=== PATIENT | female | born 1930 | race Caucasian/White ===

== ENCOUNTER 2018-12-31 11:55 | Observation (INO) ==
[2018-12-31 13:58] LABS: Hematocrit 27.7 % (35.3-44.9); Hemoglobin 8.9 g/dL (11.5-15.4); Mean Corpuscular HGB Conc 32.1 g/dL (31.6-35.5); Mean Corpuscular Hemoglobin 32.4 pg (28.0-33.3); Mean Corpuscular Volume 100.7 fL (83.0-100.0); Platelet Count 209 K/mcL (140-400); Red Blood Count 2.75 M/mcL (3.82-4.97); Red Cell Distribution Width 14.5 % (11.5-14.5)
[2018-12-31] MEDS ORDERED: Naloxone 0.4 MG/ML INJ IVP PRN (16:49)
[2018-12-31] MEDS ORDERED: Acetaminophen 325 MG TABLET PO PRN (16:49)
[2018-12-31] MEDS ORDERED: Spironolactone 25 MG TABLET PO SCH (17:00)
[2018-12-31 17:08] LABS: Basophils % 0.4 %; Eosinophils # 0.1 K/mcL (0.0-0.6); Hematocrit 28.3 % (35.3-44.9); Immature Granulocytes % 0.1 % (0-4); Lymphocytes # 2.1 K/mcL (0.6-4.6); Lymphocytes % 29.3 %; Mean Corpuscular HGB Conc 31.8 g/dL (31.6-35.5); Mean Corpuscular Hemoglobin 32.1 pg (28.0-33.3); Mean Corpuscular Volume 101.1 fL (83.0-100.0); Mean Platelet Volume 9.8 fL (9.4-12.4); Monocytes # 0.6 K/mcL (0.0-1.3); Neutrophils # 4.2 K/mcL (1.6-8.9); Platelet Count 197 K/mcL (140-400); Red Cell Distribution Width 14.4 % (11.5-14.5); Segmented Neutrophils % 60.2 %
[2018-12-31 17:15] LABS: Prothrombin Time 11.6 Seconds (9.4-12.1)
[2018-12-31 17:27] LABS: BUN/Creatinine Ratio 27 (6-26); Blood Urea Nitrogen 20 mg/dL (8-23); Calcium 9.4 mg/dL (8.6-10.3); Carbon Dioxide 25 mEq/L (23-29); Chloride 109 mEq/L (98-107); Glucose 84 mg/dL (70-105); Osmolality,Calculated 296 (280-300); Potassium 4.2 mEq/L (3.5-5.1); Sodium 142 mEq/L (136-145); eGFR For Non-African Americans > 60 (> 60)
--- NOTE | 2018-12-31 19:18 | Internal Med History&Physical ---
Date of Encounter: 12/31/18 Time of Encounter: 16:00 Internal Medicine - H&P: HPI Chief complaint: Blood in stool Admitted From: Home Plans for Post Hospital Care: Home History of present illness: Ms. Shelton is a 88 year old female sent to Hospital from Dr. Paez's office for direct admission. Past medical history is significant for CAD S/P stent, S/P viral repairment, breast cancer S/P bilateral mastectomy, hypertension. Patient has bloody stool about one week ago, lasted about one day and stopped by itself. Patient has hip pain and take ibuprofen for pain in last several weeks. Patient stop taking ibuprofen when she started having bloody stool. Patient has no coffee ground emesis. Patient denies dizziness or lightheaded. Patient has no melena, bloody stool, or diarrhea at this point. Patient was called by PCP Dr. Daily office today to refer patient to GI consult. Patient was directly admitted from GI for scopes. I have discussed CODE STATUS with this patient. Patient is AAO 3. Patient cl early told me she does not want CPR but accept temporary intubation. DNR CCA placed. Past Med Surg Social Fam HX - Past Medical History Medical history: asthma, cancer, hyperlipidemia, hypertension, TIA Psychiatric history: depression - Past Surgical History Surgical History: cancer surgery, heart valve replacement, knee replacement Additional surgical history: masectomy, right hip replacement, heart stent, heart valve - Social History Smoking Status: Never smoker Smokeless Tobacco Status: No Alcohol use: none Drug use: none - Family History Mother Living Status: Hx Family Cardiac Disorders: Yes (htn) Father Living Status: Internal Medicine - H&P: Meds Acetaminophen [Tylenol] 1,000 mg PO Q8H PRN 12/31/18 [History] Aspirin [Adult Aspirin Regimen] 81 mg PO DAILY 12/31/18 [History] Clopidogrel [Plavix] 75 mg PO DAILY 12/31/18 [History] Glucosamn/Condroitn/C/Mn/[place] [[facility] Glucosamine Chondroitin Tb] 1 tab PO BID 12/31/18 [History] Metoprolol Tartrate 50 mg PO BID 12/31/18 [History] Multivit-Min/FA/Lycopen/Lutein [Centrum Silver Tablet] 1 tab PO DAILY 12/31/18 [History] Pantoprazole Sodium [Protonix] 40 mg PO DAILY 12/31/18 [History] Simvastatin [Zocor] 10 mg PO QPM 12/31/18 [History] Spironolactone 12.5 mg PO Q48H 12/31/18 [History] Venlafaxine [Effexor] 75 mg PO DAILY 12/31/18 [History] Allergy/AdvReac Type Severity Reaction Status Date / Time No Known Allergies Allergy Verified 12/31/18 14:30 All Systems PM: A 10-system review of systems was performed and is negative for pertinent findings except as documented above in the HPI. - Constitutional Vitals: Temp Pulse Resp BP Pulse Ox 98.8 F 76 16 137/52 97 12/31/18 16:12 12/31/18 16:12 12/31/18 16:12 12/31/18 16:12 12/31/18 16:12 Exam: Pt is AAO x 3, in NAD HEENT: NC/AT, PERRL Neck: Supple, no JVD, no LAD Lungs: CTA b/l Heart: S1S2, RRR Abd: Soft, nontender, BS present Ext: ROM wnl, mild bilateral pedal edema Neuro: No focal deficit Internal Med - H&P Results - Labs CBC & Chem 7: 12/31/18 16:52 12/31/18 16:52 Labs: Short CBC 12/31/18 12/31/18 Range/Units 13:46 16:52 WBC 7.5 7.0 (4.3-11.1) K/mcL Hgb 8.9 L 9.0 L (11.5-15.4) g/dL Hct 27.7 L 28.3 L (35.3-44.9) % Plt Count 209 197 (140-400) K/mcL Neutrophils # 4.2 (1.6-8.9) K/mcL BMP 12/31/18 16:52 Sodium 142 Potassium 4.2 Chloride 109 H Carbon Dioxide 25 BUN 20 Creatinine 0.73 Glucose 84 Calcium 9.4 - Assessment and Plan (1) GI bleed Current Visit: Yes Status: Acute Assessment and plan: Patient has bloody stool. Has history of NSAID use. Likely GI bleeding caused by NSAID. - Place patient on clear liquid diet, nothing by mouth from midnight - IV PPI - GI consult - Review patient old chart, patient was suspected pheochromocytoma in 2017, with high serum dopamine and norepinephrine level. MRI of abdomen has been done, shows no MRI evidence of pheochromocytoma. Patient still report "shortness of breath spell" with face flushing, lasting for several minutes at every episode. Needs to be careful for anesthesia, although patient has no definite diagnosis at this point. I recommend anesthesiologist to review patient's chart carefully before anesthesia and see if any further workup needed. I have discussed with GI consult Dr. Holly regarding this finding. Qualifiers: GI bleed type/associated pathology: unspecified gastrointestinal hemorrhage type Qualified Code(s): K92.2 - Gastrointestinal hemorrhage, unspecified (2) DVT prophylaxis Current Visit: No Status: Acute Assessment and plan: EPCDs (3) CAD (coronary artery disease) Current Visit: No Status: Chronic Assessment and plan: S/P stent, on ASA and plavix, pt said stent was placed in last year or possibly the year before last year. No sure exact date. - Will hold plavix b/o GI bleed, cont ASA at this point. May resume plavix if no active bleeding identified. - Cont BB. - Pt denies chest pain. Qualifiers: Coronary Disease-Associated Artery/Lesion type: [place] artery [place] vs. transplanted heart: [place] heart Associated angina: without angina Qualified Code(s): I25.10 - Atherosclerotic heart disease of [place] coronary artery without angina pectoris (4) Hypertension Current Visit: No Status: Chronic Assessment and plan: Cont home meds. Qualifiers: Hypertension type: essential hypertension Qualified Code(s): I10 - Essential (primary) hypertension - Time Spent With Patient Total time spent is greater than 50% in coordination of care (as documented) at patient's floor/unit and/or counseling patient: 40 min Greater than 35 minutes
--- NOTE | 2019-01-01 00:45 | Anesthesia Evaluation PreOp ---
<Roopa Pizarroline Марина - Last Filed: 01/01/19 00:50> Date of Encounter: 01/01/19 Time of Encounter: 00:43 - Past History Planned Operation: EGD/Colon Cardiac History: HTN, Hyperlipidemia, Cardiac Surgery (Mitral Valve replacement), Cardiac Stent (s/p stent), Other (CAD,) Pulmonary History: Asthma ISO COORDINATOR History: TIA, Other (Anxiety/Depression) Other Medical History: Other (Breast Ca s/p B-mastectomy) Anesthesia History: Past Anesthesia (B-mastectomy, Heart valve replacement, TKR, R-Hip replacement) Alcohol Use: none Drug use: none Medications and Allergies Acetaminophen [Tylenol] 1,000 mg PO Q8H PRN 12/31/18 [History] Aspirin [Adult Aspirin Regimen] 81 mg PO DAILY 12/31/18 [History] Clopidogrel [Plavix] 75 mg PO DAILY 12/31/18 [History] Glucosamn/Condroitn/C/Mn/[place] [[facility] Glucosamine Chondroitin Tb] 1 tab PO BID 12/31/18 [History] Metoprolol Tartrate 50 mg PO BID 12/31/18 [History] Multivit-Min/FA/Lycopen/Lutein [Centrum Silver Tablet] 1 tab PO DAILY 12/31/18 [History] Pantoprazole Sodium [Protonix] 40 mg PO DAILY 12/31/18 [History] Simvastatin [Zocor] 10 mg PO QPM 12/31/18 [History] Spironolactone 12.5 mg PO Q48H 12/31/18 [History] Venlafaxine [Effexor] 75 mg PO DAILY 12/31/18 [History] Allergy/AdvReac Type Severity Reaction Status Date / Time No Known Allergies Allergy Verified 12/31/18 14:30 - Meds/Allergy Pre-op Review Medications Reviewed: Yes Allergies Reviewed: Yes Beta Blockers on Current Med List: Yes (Metoprolol) Anesthesia Results - Labs 12/31/18 16:52 12/31/18 16:52 Laboratory Tests 12/31/18 12/31/18 12/31/18 13:46 16:52 16:52 PT 11.6 INR 1.0 Est GFR (Non-Af Amer) > 60 B-Natriuretic Peptide 619 H - Imaging EKG: image reviewed (76bpm - Sinus rhythm Left ventricular hypertrophy Electronically Signed On 10-09-2018 23:51:42 EST by Taurus Oshea) Additional studies: ECHO EV/EV echocardiogram Impressions: LVEF 60%. Normal LV chamber size and function. Mild concentric left ventricular hypertrophy. Mild left ventricular diastolic dysfunction. Atypical septal motion consistent with post-operative status. Normal right ventricular structure and function. Moderate aortic regurgitation. History of mitral valve repair. Annular and subvalvular calcification noted. Mildly thickened MV leaflets with acceptable function. Trace MR. No significant stenosis, MG 2 mmHg. Mild pulmonic regurgitation. No evidence of pulmonary hypertension. Left Ventricular Wall Motion: Rest Echo Findings All wall segments showed normal motion. Anesthesia Exam Vital Signs Temp Pulse Resp BP Pulse Ox 12/31/18 23:40 97.8 F 76 20 148/50 99 12/31/18 20:05 99 12/31/18 19:31 98.2 F 90 19 150/48 100 12/31/18 16:12 98.8 F 76 16 137/52 97 12/31/18 14:12 98.1 F 66 15 118/66 97 Intake and Output 12/31/18 12/31/18 01/01/19 15:59 23:59 07:59 Intake Total 600 / 600 Balance 600 / 600 Intake: Oral 600 / 600 Other: Meal Dinner Percent of Meal Consumed 75% # Voids 1 # Bowel Movements 1 Weight 49 kg Height: 5'3" Weight: 108# BMI = 19 Anesthesia Assess/Plan ASA Score: 3 (Acute on Chronic CHF, CAD, Hx Breast CA, HTN, TIA) Monitoring Plan: Standard Monitors Recovery Plan: Other <Justin Maynard - Last Filed: 01/01/19 12:38> Date of Encounter: 01/01/19 Anesthesia Results - Labs 01/01/19 03:58 01/01/19 03:58 Anesthesia Exam - HEENT Pupil (Motor): Pupils equal Mallampati: II Teeth: Normal - ISO COORDINATOR LOC: Oriented ISO COORDINATOR Motor: Normal RUE, Normal LUE, Normal RLE, Normal LLE, Normal Face ISO COORDINATOR Sensory: Normal: RUE, LUE, RLE, LLE, Face - Cardiac Rhythm: Regular - Pulmonary Breath Sounds: bilateral Clear Respiratory Effort: Symmetrical Anesthesia Assess/Plan ASA Score: 3 Level of consciousness: Cooperative, Oriented Anesthetic Plan: MAC Monitoring Plan: Standard Monitors Recovery Plan: PACU
[2019-01-01 05:06] LABS: Eosinophils % 2.3 %; Hematocrit 28.1 % (35.3-44.9); Hemoglobin 8.8 g/dL (11.5-15.4); Immature Granulocytes % 0.3 % (0-4); Lymphocytes % 26.9 %; Mean Corpuscular HGB Conc 31.3 g/dL (31.6-35.5); Mean Corpuscular Volume 102.2 fL (83.0-100.0); Mean Platelet Volume 10.1 fL (9.4-12.4); Monocytes % 9.1 %; Platelet Count 211 K/mcL (140-400); Red Blood Count 2.75 M/mcL (3.82-4.97); Red Cell Distribution Width 14.6 % (11.5-14.5)
[2019-01-01 05:07] LABS: Basophils % 0.4 %; Eosinophils # 0.2 K/mcL (0.0-0.6); Monocytes # 0.7 K/mcL (0.0-1.3); Neutrophils # 4.5 K/mcL (1.6-8.9)
[2019-01-01 05:25] LABS: BUN/Creatinine Ratio 20 (6-26); Blood Urea Nitrogen 14 mg/dL (8-23); Calcium 8.9 mg/dL (8.6-10.3); Carbon Dioxide 23 mEq/L (23-29); Chloride 111 mEq/L (98-107); Glucose 83 mg/dL (70-105); Osmolality,Calculated 292 (280-300); Potassium 3.9 mEq/L (3.5-5.1); Sodium 141 mEq/L (136-145); eGFR For Non-African Americans > 60 (> 60)
[2019-01-01] MEDS ORDERED: Pantoprazole 40 MG VIAL IVP SCH (06:00)
[2019-01-01] MEDS ORDERED: Multivit/Ca/Min/Fe/FA 1 TAB TABLET PO SCH (09:00)
[2019-01-01] MEDS ORDERED: Aspirin Enteric Coated 81 MG Tablet PO SCH (09:00)
[2019-01-01] MEDS ORDERED: Lidocaine -MPF 2% 2 ML VIAL ONE (11:36)
[2019-01-01] MEDS ORDERED: Propofol 500 MG/50 ML INFUS..BTL ONE (12:22)
--- NOTE | 2019-01-01 13:09 | Gastroenterology Consult Note ---
<Jim Cedillo [place] - Last Filed: 01/01/19 13:06> Date of Encounter: 01/01/19 Time of Encounter: 11:20 - Assessment and plan (1) GI bleed Current Visit: Yes Status: Acute Assessment and plan: Hgb 13.7 on 11/01/2018, 9.8 on 12/26/18, and Hgb 8.9 on admission. History of taking ibuprofen 400 mg every 6 hours, concern for ulcer. Continue to monitor CBC and transfuse PRBC as needed. Plan for EGD and colonoscopy today. Recommend stopping ibuprofen. Qualifiers: GI bleed type/associated pathology: unspecified gastrointestinal hemorrhage type Qualified Code(s): K92.2 - Gastrointestinal hemorrhage, unspecified - Time Spent With Patient Total time spent is greater than 50% in coordination of care (as documented) at patient's floor/unit and/or counseling patient: GI History of Present Illness - Data of Consult Patient: known to practice within the last 3 years Consult date: 01/01/19 Requesting Physician: Brynn Wilson MD - Consult Narrative Reason for consult: GI Bleed History of present illness: Ms. Shelton is a 88 year old female with PMHx of GERD, breast cancer, HTN, OA, s/p mitral valve repair, CAD, CHF who was sent to the ED by Dr. Powell due to worsening anemia. Hgb 13.7 on 11/01/2018, 9.8 on 12/26/18, and Hgb 8.9 on admission. Patient reports one day of BRBPR and dark stoolsabout one week ago. Patient reports bleeding resolved the same day it started She has history of taking ibuprofen 400 mg every 6 hours. CTA A/P 12/26/2018 shows no evidence of active arterial bleeding in the GI tract, does show extensive colonic diverticulosis with no CT evidence of diverticulitis, mild diffuse colonic stool burden, prominent endometrial stripe at 10 mm further evaluation with pelvic ultrasound is indicated. Procedures: EGD 07/13/2014 Dr. Holly: Medium size hiatal hernia. Colonoscopy 07/31/2011 Dr. Randall: Diverticulosis. NSAIDs: ASA, ibuprofen Anticoagulation: Plavix Past Med Surg Social Fam HX - Past Medical History Medical history: asthma, cancer, hyperlipidemia, hypertension, TIA Psychiatric history: depression - Past Surgical History Surgical History: cancer surgery, heart valve replacement, knee replacement Additional surgical history: masectomy, right hip replacement, heart stent, heart valve - Social History Smoking Status: Never smoker Smokeless Tobacco Status: No Alcohol use: none Drug use: none - Family History Mother Living Status: Hx Family Cardiac Disorders: Yes (htn) Father Living Status: - Gastrointestinal Gastrointestinal: Present: as per HPI - Constitutional Constitutional: as per HPI - EENT Eyes: as per HPI Ears: Present: as per HPI Nose, mouth and throat: Present: as per HPI - Cardiovascular Cardiovascular ROS: Present: as per HPI - Respiratory Respiratory IM: Present: as per HPI - Genitourinary Genitourinary: Absent: change in color, Urinary frequency - Neurological ROS Neurological GI: Present: as per HPI - Hematologic/Lymphatic Hematologic/Lymphatic pediatric: Present: as per HPI - Musculoskeletal Musculoskeletal ROS GI: Present: as per HPI - Integumentary Integumentary GI: Present: as per HPI - Psychiatric ROS Psychiatric GI: Present: as per HPI - Endocrine Endocrine IM: Present: as per HPI - Constitutional Vitals: Temp Pulse Resp BP Pulse Ox 98.1 F 75 16 127/68 99 01/01/19 12:35 01/01/19 12:35 01/01/19 12:35 01/01/19 12:35 01/01/19 12:35 General appearance: Present: cooperative, A&O X 3, no acute distress, answers questions appropriately - Head Head exam: Present: atraumatic, normocephalic - Eye Eye exam: Present: normal appearance, sclera anicteric - ENT ENT exam: Present: mucous membranes moist - Neck Neck exam general surgery: Present: normal inspection, trachea midline - Respiratory Respiratory exam: Present: CTAB. Absent: rales, rhonchi, wheezes - Cardiovascular Cardiovascular exam: Present: RRR, +S1, +S2 - GI/Abdominal GI/Abdominal exam: Present: soft, no peritoneal signs. Absent: distended, firm, guarding, tenderness - Rectal Rectal exam: Present: deferred - Extremities Exam Extremities exam: Present: warm - Neurological Exam Neurological exam: Present: no focal deficits - Psychiatric Psychiatric exam: Present: normal affect, normal mood - Skin Skin exam: Present: dry, intact, normal color, warm Results - Labs CBC & Chem 7: 01/01/19 03:58 01/01/19 03:58 Labs: Last Result 01/01/19 03:58 Calcium 8.9 Entire Visit 01/01/19 03:58 Hgb 8.8 L Hct 28.1 L - ABG ABG results: PT/INR, D-dimer PT 11.6 Seconds (9.4-12.1) 12/31/18 16:52 Consult Discharge Plan - Plan Referrals: Kashif Daily MD [Primary Care Provider] - <Paul Holly - Last Filed: 01/01/19 14:31> Date of Encounter: 01/01/19 - Time Spent With Patient Total time spent is greater than 50% in coordination of care (as documented) at patient's floor/unit and/or counseling patient: GI History of Present Illness - Data of Consult Requesting Physician: Brynn Wilson MD - Consult Narrative History of present illness: Ms. Shelton is a 88 year old female - Constitutional Vitals: Temp Pulse Resp BP Pulse Ox 98.1 F 71 17 98/52 94 01/01/19 12:35 01/01/19 13:50 01/01/19 13:50 01/01/19 13:50 01/01/19 13:50 Results - Labs CBC & Chem 7: 01/01/19 03:58 01/01/19 03:58 Labs: Last Result 01/01/19 03:58 Calcium 8.9 Entire Visit 01/01/19 03:58 Hgb 8.8 L Hct 28.1 L - ABG ABG results: PT/INR, D-dimer PT 11.6 Seconds (9.4-12.1) 12/31/18 16:52 - Attending Attestation I have personally performed a face to face evaluation on this patient. I have reviewed and agree with the care plan. History and Exam by me shows: Patient seen. No abdominal pain per patient she had been taking Motrin 400 mg every 6-8 hours for her hip pain lately. Denies any blood in her stool on examination abdomen is benign. Assessment: Patient was on disease currently on aspirin and Plavix and had been lately taking Motrin now with the anemia with drop in her hemoglobin from her baseline. Recommendation: EGD colonoscopy today
--- NOTE | 2019-01-01 14:05 | Anesthesia Evaluation Post Op ---
Date of Encounter: 01/01/19 Time of Encounter: 14:04 - Vital Signs Vital Signs: Vital Signs/O2 Sat/Glucose, Most Recent Temp Pulse Resp BP Pulse Ox 98.1 F 71 17 98/52 94 01/01/19 12:35 01/01/19 13:50 01/01/19 13:50 01/01/19 13:50 01/01/19 13:50 Blood Glucose* 94 - Lungs Lungs: Clear Ascult./Percussion - Airway Airway: Non-obstructed - Cardiovascular Regular Rate - Mental Status Mental Status: Alert & Oriented, Answers Appropriately - Pain Pain Scale: 0 - Nausea Vomiting Nausea Vomiting: Not Present - Hydration Hydration: NPO - Discharge PostOp Status: Transfer Patient to floor
--- NOTE | 2019-01-01 14:32 | Discharge Summary ---
- NOTES TO OUTPATIENT PROVIDER Notes to Outpatient Provider: Patient needs follow-up on pathology results from EGD and colonoscopy done today. Also recheck CBC in 1 week Orders not resulted at time of discharge: Pending orders 01/01/19 13:25 Surgical Pathology [PTH] Routine 01/01/19 14:00 Iron Profile Routine 01/01/19 14:01 Ferritin Routine Folate Routine Vitamin B12 Routine 01/01/19 17:00 US pelvis extended [US] Routine Date of Encounter: 01/01/19 Time of Encounter: 14:29 - Discharge Diagnosis (1) GI bleed Priority: Primary Status: Acute Qualifiers: GI bleed type/associated pathology: unspecified gastrointestinal hemorrhage type Qualified Code(s): K92.2 - Gastrointestinal hemorrhage, unspecified (2) DVT prophylaxis Priority: Secondary Status: Acute (3) CAD (coronary artery disease) Priority: Secondary Status: Chronic Qualifiers: Coronary Disease-Associated Artery/Lesion type: [place] artery [place] vs. transplanted heart: [place] heart Associated angina: without angina Qualified Code(s): I25.10 - Atherosclerotic heart disease of [place] coronary artery without angina pectoris (4) Hypertension Priority: Secondary Status: Chronic Qualifiers: Hypertension type: essential hypertension Qualified Code(s): I10 - Essential (primary) hypertension Hospital course: Ms. Shelton is a 88 year old female with a history of asthma, hypertension, hyperlipidemia, heart valve replacement who was hospitalized here for anemia along with bloody stools. She was evaluated by GI and underwent upper GI endoscopy and colonoscopy today. 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 She also had a colonic polyp. This was removed and she will follow up with gastroenterology for pathology results. At this time she is stable to be discharged home. She will hold off on Plavix for 5 days and resume after. Discharge discussed with: patient, nurse - Time Spent with Patient Total time spent providing and/or coordinating discharge services: Time spent: Greater than 30 minutes (32 min) - Discharge Medications Prescriptions: Continued Aspirin [Adult Aspirin Regimen] 81 mg PO DAILY Clopidogrel [Plavix] 75 mg PO DAILY Glucosamn/Condroitn/C/Mn/[place] [[facility]vs Glucosamine Chondroitin Tb] 1 tab PO BID Metoprolol Tartrate 50 mg PO BID Multivit-Min/FA/Lycopen/Lutein [Centrum Silver Tablet] 1 tab PO DAILY Simvastatin [Zocor] 10 mg PO QPM Venlafaxine [Effexor] 75 mg PO DAILY Pantoprazole Sodium [Protonix] 40 mg PO DAILY Acetaminophen [Tylenol] 1,000 mg PO Q8H PRN PRN Reason: Pain Spironolactone 12.5 mg PO Q48H Home Medications: Acetaminophen [Tylenol] 1,000 mg PO Q8H PRN 12/31/18 [History] Aspirin [Adult Aspirin Regimen] 81 mg PO DAILY 12/31/18 [History] Clopidogrel [Plavix] 75 mg PO DAILY 12/31/18 [History] Glucosamn/Condroitn/C/Mn/[place] [Cvs Glucosamine Chondroitin Tb] 1 tab PO BID 12/31/18 [History] Metoprolol Tartrate 50 mg PO BID 12/31/18 [History] Multivit-Min/FA/Lycopen/Lutein [Centrum Silver Tablet] 1 tab PO DAILY 12/31/18 [History] Pantoprazole Sodium [Protonix] 40 mg PO DAILY 12/31/18 [History] Simvastatin [Zocor] 10 mg PO QPM 12/31/18 [History] Spironolactone 12.5 mg PO Q48H 12/31/18 [History] Venlafaxine [Effexor] 75 mg PO DAILY 12/31/18 [History] Allergies/Adverse Reactions: Allergy/AdvReac Type Severity Reaction Status Date / Time No Known Allergies Allergy Verified 12/31/18 14:30 Date of admission: 12/31/18 13:02 Primary care physician: Kashif Daily MD Consults: 12/31/18 16:54 Consult to Gastroenterology [CONS] Routine Consulting Provider: [facility] [place] Reason for Consult: GI bleed Call Completed: Yes Discharging clinician: Brynn Wilson Anticipated date of discharge: 01/01/19 - Constitutional Vitals: Temp Pulse Resp BP Pulse Ox 98.1 F 71 17 98/52 94 01/01/19 12:35 01/01/19 13:50 01/01/19 13:50 01/01/19 13:50 01/01/19 13:50 General appearance: Present: cooperative, A&O X 3, pleasant, answers questions appropriately Exam: . - Respiratory Respiratory exam: Present: CTAB. Absent: accessory muscle use, rales, rhonchi, wheezes - Cardiovascular Cardiovascular exam: Present: RRR, +S1, +S2. Absent: diastolic murmur, gallop, rubs, systolic murmur - GI/Abdominal GI/Abdominal exam: Present: normal bowel sounds, soft, no peritoneal signs. Absent: distended, tenderness - Patient Status Disposition: Home, Self-Care Condition: Good Overall status at discharge: patient is back to baseline - Ambulatory Orders Ambulatory Orders: Complete Blood Count [HEME] Time Frame: 1 Week, Facility: [facility], Location: Lab - Discharge Instructions Follow Up With: Kashif Daily MD [Primary Care Provider] - (in 1-2 weeks) Additional Instructions: Please hold Plavix for 5 days and then resume taking it. - Diet and Activity Activity: increase activity as tolerated Diet: low fat, low cholesterol, low salt diet
[2019-01-01 15:52] VITALS: BP 123/77
[2019-01-01 16:15] LABS: % Iron Saturation 14 % (15-50); Iron 53 mcg/dL (50-170); Transferrin 271 mg/dL (203-362)
[2019-01-01 16:25] LABS: Folate > 22.3 ng/mL (3.0-16.0); Vitamin B12 606 pg/mL (250-1100)
== END 2019-01-01 19:00 | disposition home or self-care (01) ==
LOC: 2SOUTHHOLD → SUATTDRO 13:02
PROVIDERS: ADMIT Student in an Organized Health Care Education/Training Program; ATTEND Internal Medicine

== ENCOUNTER 2020-02-17 20:46 | Inpatient (IN) ==
[2020-02-17] MEDS ORDERED: Ondansetron 4 MG/2 ML VIAL IVP ONE (21:05)
[2020-02-17 21:20] LABS: Basophils % 0.3 %; Eosinophils # 0.2 K/mcL (0.0-0.6); Eosinophils % 1.6 %; Hematocrit 42.5 % (35.3-44.9); Hemoglobin 14.3 g/dL (11.5-15.4); Immature Granulocytes % 0.3 % (0-4); Lymphocytes % 39.6 %; Mean Corpuscular HGB Conc 33.6 g/dL (31.6-35.5); Mean Corpuscular Hemoglobin 32.5 pg (28.0-33.3); Mean Corpuscular Volume 96.6 fL (83.0-100.0); Monocytes # 1.1 K/mcL (0.0-1.3); Monocytes % 8.7 %; Neutrophils # 6.3 K/mcL (1.6-8.9); Platelet Count 261 K/mcL (140-400); Segmented Neutrophils % 49.5 %; White Blood Count 12.7 K/mcL (4.3-11.1)
[2020-02-17] MEDS ORDERED: *HR* FentaNYL (PF) 100 MCG/2 ML VIAL IVP ONE (21:24)
[2020-02-17 21:43] LABS: Alanine Aminotransferase 23 Units/L (7-52); Albumin 4.6 g/dL (3.5-5.7); Albumin/Globulin Ratio 1.7 (1.1-2.2); Alkaline Phosphatase 53 Units/L (34-104); Aspartate Amino Transferase 22 Units/L (13-39); BUN/Creatinine Ratio 26 (6-26); Bilirubin,Total 0.7 mg/dL (0.3-1.0); Blood Urea Nitrogen 22 mg/dL (8-23); Calcium 10.3 mg/dL (8.6-10.3); Carbon Dioxide 22 mEq/L (23-29); Chloride 110 mEq/L (98-107); Globulin 2.7 g/dL (2.4-3.5); Glucose 123 mg/dL (70-105); Lipase 51 Units/L (11-82); Osmolality,Calculated 305 (280-300); Potassium 3.4 mEq/L (3.5-5.1); Sodium 145 mEq/L (136-145); Total Protein 7.3 g/dL (6.4-8.9); eGFR For African Americans > 60 (> 60); eGFR For Non-African Americans > 60 (> 60)
[2020-02-17 22:05] LABS: Bacteria,Urine Few per hpf (None-Few); Bilirubin,Urine Negative (Negative); Blood,Urine Negative (Negative); Clarity,Urine Clear (Clear); Color,Urine Yellow (Yellow); Glucose,Urine (UA) Normal (Normal); Hyaline Casts,Urine Few per lpf (None Seen); Ketones,Urine 10 mg/dL (Negative); Leukocyte Esterase,Urine Small (Negative); Mucus,Urine Few per lpf (None-Few); Nitrite,Urine Negative (Negative); PH,Urine 5.5 pH Units (5.0-8.0); Protein,Urine 100 mg/dL (Neg-Trace); RBC,Urine 0-3 per hpf (0-3); Specific Gravity,Urine 1.028 (1.010-1.025); Squamous Epithelial Cell,Urine Few per hpf (None-Few)
[2020-02-17] MEDS ORDERED: Spironolactone 25 MG TABLET PO SCH (22:30)
[2020-02-17] MEDS: Aspirin 81 MG TAB.CHEW PO SCH (23:00)
[2020-02-18] MEDS ORDERED: Naloxone 0.4 MG/ML INJ IVP PRN (00:45)
[2020-02-18] MEDS: Acetaminophen 325 MG TABLET PO PRN ×2 (01:27→17:46)
[2020-02-18 02:53] LABS: Hematocrit 44.6 % (35.3-44.9); Hemoglobin 14.6 g/dL (11.5-15.4); Mean Corpuscular HGB Conc 32.7 g/dL (31.6-35.5); Mean Corpuscular Hemoglobin 32.2 pg (28.0-33.3); Mean Corpuscular Volume 98.5 fL (83.0-100.0); Mean Platelet Volume 10.4 fL (9.4-12.4); Platelet Count 221 K/mcL (140-400); Red Blood Count 4.53 M/mcL (3.82-4.97); Red Cell Distribution Width 13.1 % (11.5-14.5); White Blood Count 16.3 K/mcL (4.3-11.1)
[2020-02-18 03:13] LABS: BUN/Creatinine Ratio 34 (6-26); Blood Urea Nitrogen 27 mg/dL (8-23); Calcium 9.5 mg/dL (8.6-10.3); Carbon Dioxide 22 mEq/L (23-29); Chloride 108 mEq/L (98-107); Glucose 161 mg/dL (70-105); Magnesium 1.9 mg/dL (1.6-2.6); Osmolality,Calculated 307 (280-300); Phosphorous 4.2 mg/dL (2.7-4.5); Potassium 3.9 mEq/L (3.5-5.1); Sodium 144 mEq/L (136-145); eGFR For African Americans > 60 (> 60); eGFR For Non-African Americans > 60 (> 60)
[2020-02-18 03:25] LABS: Thyroid Stimulating Hormone 7.805 mcIU/mL (0.340-5.600)
[2020-02-18] MEDS ORDERED: *HR* HYDROmorphone PF 0.5 MG/0.5 ML SYRINGE IVP ONE (04:54)
[2020-02-18] MEDS: *HR* Promethazine 25 MG/ML VIAL IVP PRN ×2 (07:40→20:52)
[2020-02-18] MEDS: Aspirin 81 MG TAB.CHEW PO SCH (07:45)
[2020-02-18] MEDS: cefTRIAXone 1,000 MG in Water for inj. (sterile) 10 ML IVP SCH (12:48)
[2020-02-19] MEDS: Acetaminophen 325 MG TABLET PO PRN (04:26)
[2020-02-19 06:42] LABS: Hematocrit 44.3 % (35.3-44.9); Hemoglobin 15.1 g/dL (11.5-15.4); Mean Corpuscular HGB Conc 34.1 g/dL (31.6-35.5); Mean Corpuscular Hemoglobin 32.8 pg (28.0-33.3); Mean Corpuscular Volume 96.3 fL (83.0-100.0); Mean Platelet Volume 10.4 fL (9.4-12.4); Platelet Count 231 K/mcL (140-400); Red Cell Distribution Width 13.3 % (11.5-14.5); White Blood Count 19.5 K/mcL (4.3-11.1)
[2020-02-19 07:12] LABS: BUN/Creatinine Ratio 54 (6-26); Blood Urea Nitrogen 46 mg/dL (8-23); Calcium 9.6 mg/dL (8.6-10.3); Carbon Dioxide 21 mEq/L (23-29); Chloride 109 mEq/L (98-107); Glucose 126 mg/dL (70-105); Osmolality,Calculated 305 (280-300); Sodium 141 mEq/L (136-145); eGFR For African Americans > 60 (> 60); eGFR For Non-African Americans > 60 (> 60)
[2020-02-19] MEDS: cefTRIAXone 1,000 MG in Water for inj. (sterile) 10 ML IVP SCH (09:29)
[2020-02-19] MEDS: Aspirin 81 MG TAB.CHEW PO SCH (09:29)
[2020-02-19 09:44] LABS: Hematocrit 46.8 % (35.3-44.9); Hemoglobin 15.3 g/dL (11.5-15.4); Mean Corpuscular HGB Conc 32.7 g/dL (31.6-35.5); Mean Corpuscular Hemoglobin 31.8 pg (28.0-33.3); Mean Corpuscular Volume 97.3 fL (83.0-100.0); Mean Platelet Volume 10.5 fL (9.4-12.4); Platelet Count 240 K/mcL (140-400); Red Blood Count 4.81 M/mcL (3.82-4.97); Red Cell Distribution Width 13.5 % (11.5-14.5); White Blood Count 17.8 K/mcL (4.3-11.1)
[2020-02-19 11:35] LABS: Monocytes # 2.1 K/mcL (0.0-1.3); Neutrophils # 14.6 K/mcL (1.6-8.9); Platelet Estimate Normal (Normal)
[2020-02-19 11:36] LABS: Reactive Lymphocytes Present (Not Present)
[2020-02-19] MEDS ORDERED: 0.9 % Sodium Chloride 500 ML IVC ONE (12:55)
[2020-02-19] MEDS: MetroNIDAZOLE 500 MG/100 ML 500 MG/100 ML BAG IVPB SCH ×2 (15:00→23:53)
[2020-02-19] MEDS ORDERED: Isovue-370 500 ML BOTTLE IVP ONE (16:35)
[2020-02-19] MEDS ORDERED: *HR* HYDROcodone/Acet 5/325 mg TABLET PO PRN (16:42)
[2020-02-19] MEDS ORDERED: Acetaminophen 325 MG TABLET PO PRN (16:43)
[2020-02-19] MEDS: Spironolactone 25 MG TABLET PO SCH (19:38)
[2020-02-19] MEDS ORDERED: 0.9 % Sodium Chloride 1,000 ML IVC ONE (21:15)
[2020-02-19] MEDS ORDERED: *HR* Metoprolol 5 MG/5 ML VIAL IVP ONE (21:32)
[2020-02-20 00:35] LABS: Mean Corpuscular HGB Conc 31.7 g/dL (31.6-35.5); Mean Corpuscular Hemoglobin 31.3 pg (28.0-33.3); Mean Corpuscular Volume 98.8 fL (83.0-100.0); Mean Platelet Volume 10.6 fL (9.4-12.4); Neutrophils # 13.1 K/mcL (1.6-8.9); Platelet Count 194 K/mcL (140-400); Red Blood Count 4.15 M/mcL (3.82-4.97); Red Cell Distribution Width 13.6 % (11.5-14.5); Segmented Neutrophils % 86.4 %; White Blood Count 15.2 K/mcL (4.3-11.1)
[2020-02-20 00:36] LABS: Basophils % 0.2 %; Lymphocytes # 0.4 K/mcL (0.6-4.6); Lymphocytes % 2.9 %; Monocytes # 1.4 K/mcL (0.0-1.3); Monocytes % 9.5 %
[2020-02-20 00:48] LABS: BUN/Creatinine Ratio 51 (6-26); Blood Urea Nitrogen 43 mg/dL (8-23); C-Reactive Protein 285 mg/L (Less than 10); Calcium 8.1 mg/dL (8.6-10.3); Carbon Dioxide 21 mEq/L (23-29); Chloride 111 mEq/L (98-107); Glucose 104 mg/dL (70-105); Osmolality,Calculated 303 (280-300); Potassium 3.9 mEq/L (3.5-5.1); Sodium 141 mEq/L (136-145); eGFR For African Americans > 60 (> 60); eGFR For Non-African Americans > 60 (> 60)
[2020-02-20 01:14] LABS: Large Platelets Present (Not Present); Platelet Estimate Normal (Normal)
[2020-02-20] MEDS: Aspirin 81 MG TAB.CHEW PO SCH (08:10)
[2020-02-20] MEDS: cefTRIAXone 1,000 MG in Water for inj. (sterile) 10 ML IVP SCH (08:12)
[2020-02-20] MEDS: MetroNIDAZOLE 500 MG/100 ML 500 MG/100 ML BAG IVPB SCH ×3 (08:14→23:12)
[2020-02-20 14:43] LABS: Lipase 8 Units/L (11-82)
[2020-02-21 06:38] LABS: Hematocrit 38.9 % (35.3-44.9); Hemoglobin 12.6 g/dL (11.5-15.4); Mean Corpuscular HGB Conc 32.4 g/dL (31.6-35.5); Mean Corpuscular Hemoglobin 31.5 pg (28.0-33.3); Mean Corpuscular Volume 97.3 fL (83.0-100.0); Mean Platelet Volume 11.1 fL (9.4-12.4); Monocytes # 1.3 K/mcL (0.0-1.3); Platelet Count 203 K/mcL (140-400); Red Cell Distribution Width 13.7 % (11.5-14.5); White Blood Count 15.8 K/mcL (4.3-11.1)
[2020-02-21 07:01] LABS: Alanine Aminotransferase 16 Units/L (7-52); Albumin 3.2 g/dL (3.5-5.7); Albumin/Globulin Ratio 1.3 (1.1-2.2); Alkaline Phosphatase 73 Units/L (34-104); Aspartate Amino Transferase 18 Units/L (13-39); BUN/Creatinine Ratio 55 (6-26); Bilirubin,Total 0.6 mg/dL (0.3-1.0); Blood Urea Nitrogen 52 mg/dL (8-23); Calcium 8.9 mg/dL (8.6-10.3); Carbon Dioxide 20 mEq/L (23-29); Chloride 111 mEq/L (98-107); Globulin 2.5 g/dL (2.4-3.5); Glucose 93 mg/dL (70-105); Osmolality,Calculated 306 (280-300); Potassium 3.9 mEq/L (3.5-5.1); Sodium 141 mEq/L (136-145); Total Protein 5.7 g/dL (6.4-8.9); eGFR For African Americans > 60 (> 60); eGFR For Non-African Americans 56 (> 60)
[2020-02-21 07:04] LABS: Lymphocytes # 1.6 K/mcL (0.6-4.6); Platelet Estimate Normal (Normal)
[2020-02-21] MEDS ORDERED: *HR* LORazepam 2 MG/ML VIAL IVP STA (08:55)
[2020-02-21] MEDS: cefTRIAXone 1,000 MG in Water for inj. (sterile) 10 ML IVP SCH (09:07)
[2020-02-21] MEDS: MetroNIDAZOLE 500 MG/100 ML 500 MG/100 ML BAG IVPB SCH ×3 (09:07→23:39)
[2020-02-21] MEDS: Pantoprazole 40 MG VIAL IVP SCH (09:08)
[2020-02-21] MEDS: Aspirin 81 MG TAB.CHEW PO SCH (09:08)
[2020-02-21] MEDS: 0.9 % Sodium Chloride 1,000 ML IVC SCH ×2 (10:23→21:49)
[2020-02-21] MEDS: Spironolactone 25 MG TABLET PO SCH (21:54)
[2020-02-21] MEDS ORDERED: Isovue-370 500 ML BOTTLE PO ONE (22:49)
[2020-02-21] MEDS: DilTIAZem 50 MG/50 ML IV.SOLN IVC SCH (23:06)
[2020-02-21 23:42] LABS: BUN/Creatinine Ratio 61 (6-26); Blood Urea Nitrogen 50 mg/dL (8-23); Carbon Dioxide 17 mEq/L (23-29); Chloride 116 mEq/L (98-107); Glucose 85 mg/dL (70-105); Osmolality,Calculated 311 (280-300); Potassium 3.5 mEq/L (3.5-5.1); Sodium 144 mEq/L (136-145); eGFR For African Americans > 60 (> 60); eGFR For Non-African Americans > 60 (> 60)
[2020-02-22] MEDS ORDERED: Isovue-370 500 ML BOTTLE IVP ONE (00:57)
[2020-02-22 01:13] LABS: Basophils % 0.3 %; Eosinophils # 0.1 K/mcL (0.0-0.6); Eosinophils % 0.4 %; Hematocrit 39.1 % (35.3-44.9); Hemoglobin 12.6 g/dL (11.5-15.4); Immature Granulocytes % 0.7 % (0-4); Lymphocytes # 0.7 K/mcL (0.6-4.6); Lymphocytes % 5.4 %; Mean Corpuscular HGB Conc 32.2 g/dL (31.6-35.5); Mean Corpuscular Hemoglobin 31.6 pg (28.0-33.3); Mean Platelet Volume 10.9 fL (9.4-12.4); Monocytes # 1.4 K/mcL (0.0-1.3); Monocytes % 11.5 %; Neutrophils # 10.2 K/mcL (1.6-8.9); Platelet Count 212 K/mcL (140-400); Red Blood Count 3.99 M/mcL (3.82-4.97); Segmented Neutrophils % 81.7 %; White Blood Count 12.5 K/mcL (4.3-11.1)
[2020-02-22 01:33] LABS: Alanine Aminotransferase 15 Units/L (7-52); Albumin 2.9 g/dL (3.5-5.7); Albumin/Globulin Ratio 1.2 (1.1-2.2); Alkaline Phosphatase 68 Units/L (34-104); Aspartate Amino Transferase 15 Units/L (13-39); BUN/Creatinine Ratio 58 (6-26); Bilirubin,Total 0.5 mg/dL (0.3-1.0); Blood Urea Nitrogen 49 mg/dL (8-23); Calcium 8.1 mg/dL (8.6-10.3); Carbon Dioxide 18 mEq/L (23-29); Chloride 116 mEq/L (98-107); Globulin 2.5 g/dL (2.4-3.5); Glucose 81 mg/dL (70-105); Osmolality,Calculated 312 (280-300); Potassium 3.6 mEq/L (3.5-5.1); Sodium 145 mEq/L (136-145); Total Protein 5.4 g/dL (6.4-8.9); eGFR For African Americans > 60 (> 60); eGFR For Non-African Americans > 60 (> 60)
[2020-02-22 02:01] LABS: Platelet Estimate Normal (Normal)
[2020-02-22] MEDS ORDERED: Dextrose Gel 15 GM/37.5 ML TUBE PO PRN ×4 (05:45→15:53)
[2020-02-22] MEDS ORDERED: *HR* Dextrose 50 % in Water (Vial) 50 ML VIAL IVP PRN ×2 (05:45→15:53)
[2020-02-22] MEDS ORDERED: D5% in Water 1,000 ML IVC PRN ×2 (05:45→15:53)
[2020-02-22] MEDS: DilTIAZem 50 MG/50 ML IV.SOLN IVC SCH ×3 (06:20→19:43)
[2020-02-22] MEDS ORDERED: *HR* Metoprolol 5 MG/5 ML VIAL IVP STA (07:51)
[2020-02-22] MEDS ORDERED: *HR* Metoprolol 5 MG/5 ML VIAL IVP PRN (07:52)
[2020-02-22] MEDS ORDERED: Piperacillin/Tazobactam 3.375 GM in 0.9 % Sodium Chloride Mini Bag 100 ML IVPB STA (08:05)
[2020-02-22] MEDS: 0.9 % Sodium Chloride 1,000 ML IVC SCH ×3 (08:36→19:43)
[2020-02-22] MEDS: Pantoprazole 40 MG VIAL IVP SCH (08:37)
[2020-02-22] MEDS: cefTRIAXone 1,000 MG in Water for inj. (sterile) 10 ML IVP SCH (08:37)
[2020-02-22] MEDS: Aspirin 81 MG TAB.CHEW PO SCH (08:37)
[2020-02-22] MEDS: MetroNIDAZOLE 500 MG/100 ML 500 MG/100 ML BAG IVPB SCH ×4 (08:38→23:48)
[2020-02-22] MEDS ORDERED: *HR* Heparin 5,000 UNIT/ML VIAL IVP PRN ×3 (10:34→15:53)
[2020-02-22] MEDS ORDERED: *HR* Heparin 5,000 UNIT/ML VIAL IVP ONE ×2 (10:34→15:53)
[2020-02-22] MEDS ORDERED: *HR* Digoxin 0.5 MG/2 ML AMPUL IVP ONE (10:38)
[2020-02-22] MEDS ORDERED: Perflutren Lipid Microsphere 1.3 ML in 0.9 % Sodium Chloride 8.7 ML IVP ONE (10:40)
[2020-02-22] MEDS ORDERED: Heparin 25,000 UNIT/250 ML D5W 25,000 UNIT/250 ML IV.SOLN IVC SCH (10:45)
[2020-02-22 11:14] LABS: Hematocrit 36.4 % (35.3-44.9); Hemoglobin 11.9 g/dL (11.5-15.4); Mean Corpuscular HGB Conc 32.7 g/dL (31.6-35.5); Mean Corpuscular Hemoglobin 32.1 pg (28.0-33.3); Mean Corpuscular Volume 98.1 fL (83.0-100.0); Mean Platelet Volume 10.8 fL (9.4-12.4); Platelet Count 202 K/mcL (140-400); Red Blood Count 3.71 M/mcL (3.82-4.97); Red Cell Distribution Width 14.2 % (11.5-14.5); White Blood Count 11.4 K/mcL (4.3-11.1)
[2020-02-22 11:18] LABS: INR 1.3; Prothrombin Time 14.2 Seconds (9.4-12.1)
[2020-02-22 11:25] LABS: Heparin anti-factor XA UFH < 0.04 IU/mL (0.30-0.70)
[2020-02-22 11:41] LABS: Triiodothyronine (T3) Free 1.73 pg/mL (2.50-3.90)
[2020-02-22] MEDS: Heparin 25,000 UNIT/250 ML D5W 25,000 UNIT/250 ML IV.SOLN IVC SCH (15:00)
[2020-02-22] MEDS ORDERED: Acetaminophen 325 MG TABLET PO PRN (15:53)
[2020-02-22] MEDS ORDERED: Isovue-370 500 ML BOTTLE PO ONE (15:53)
[2020-02-22] MEDS ORDERED: Naloxone 0.4 MG/ML INJ IVP PRN (15:53)
[2020-02-22] MEDS ORDERED: *HR* HYDROcodone/Acet 5/325 mg TABLET PO PRN (15:53)
[2020-02-22] MEDS ORDERED: Piperacillin/Tazobactam 3.375 GM in 0.9 % Sodium Chloride Mini Bag 100 ML IVPB SCH (16:00)
[2020-02-22] MEDS: Piperacillin/Tazobactam 3.375 GM in 0.9 % Sodium Chloride Mini Bag 100 ML IVPB SCH ×2 (19:46→23:48)
[2020-02-23] MEDS: *HR* Heparin 5,000 UNIT/ML VIAL IVP PRN ×2 (05:25→14:24)
[2020-02-23] MEDS: Pantoprazole 40 MG VIAL IVP SCH (05:29)
[2020-02-23] MEDS: 0.9 % Sodium Chloride 1,000 ML IVC SCH ×3 (05:30→22:06)
[2020-02-23] MEDS: Piperacillin/Tazobactam 3.375 GM in 0.9 % Sodium Chloride Mini Bag 100 ML IVPB SCH ×3 (07:44→23:30)
[2020-02-23] MEDS ORDERED: Ondansetron 4 MG/2 ML VIAL IVP ONE (07:52)
[2020-02-23] MEDS ORDERED: Simethicone 80 MG TAB.CHEW PO PRN (07:52)
[2020-02-23] MEDS: Aspirin 81 MG TAB.CHEW PO SCH (08:01)
[2020-02-23] MEDS ORDERED: E-Z-PAQUE (BARIUM SULF) SUSP 1 BOTTLE PO ONE (10:32)
[2020-02-23 13:32] LABS: Hematocrit 37.4 % (35.3-44.9); Hemoglobin 11.6 g/dL (11.5-15.4); Mean Platelet Volume 10.5 fL (9.4-12.4); Platelet Count 178 K/mcL (140-400); Red Blood Count 3.74 M/mcL (3.82-4.97); Red Cell Distribution Width 14.1 % (11.5-14.5); White Blood Count 10.9 K/mcL (4.3-11.1)
[2020-02-23 13:47] LABS: BUN/Creatinine Ratio 50 (6-26); Blood Urea Nitrogen 34 mg/dL (8-23); C-Reactive Protein 135 mg/L (Less than 10); Calcium 7.1 mg/dL (8.6-10.3); Carbon Dioxide 18 mEq/L (23-29); Chloride 119 mEq/L (98-107); Glucose 96 mg/dL (70-105); Osmolality,Calculated 305 (280-300); Potassium 3.2 mEq/L (3.5-5.1); Sodium 144 mEq/L (136-145); eGFR For African Americans > 60 (> 60); eGFR For Non-African Americans > 60 (> 60)
[2020-02-23 15:03] LABS: Lymphocytes # 1.3 K/mcL (0.6-4.6); Monocytes # 1.1 K/mcL (0.0-1.3); Neutrophils # 8.5 K/mcL (1.6-8.9); Platelet Estimate Normal (Normal)
[2020-02-23 15:31] LABS: Hematocrit 36.8 % (35.3-44.9); Hemoglobin 11.6 g/dL (11.5-15.4); Lymphocytes # 0.7 K/mcL (0.6-4.6); Mean Corpuscular HGB Conc 31.5 g/dL (31.6-35.5); Mean Corpuscular Hemoglobin 31.8 pg (28.0-33.3); Mean Corpuscular Volume 100.8 fL (83.0-100.0); Mean Platelet Volume 10.9 fL (9.4-12.4); Nucleated Red Blood Cells 0.2 /100 WBC (0); Platelet Count 185 K/mcL (140-400); Red Blood Count 3.65 M/mcL (3.82-4.97); White Blood Count 11.5 K/mcL (4.3-11.1)
[2020-02-23 15:50] LABS: BUN/Creatinine Ratio 51 (6-26); Blood Urea Nitrogen 34 mg/dL (8-23); Calcium 7.6 mg/dL (8.6-10.3); Carbon Dioxide 18 mEq/L (23-29); Chloride 118 mEq/L (98-107); Glucose 92 mg/dL (70-105); Osmolality,Calculated 305 (280-300); Potassium 3.5 mEq/L (3.5-5.1); Sodium 144 mEq/L (136-145); eGFR For African Americans > 60 (> 60); eGFR For Non-African Americans > 60 (> 60)
[2020-02-23 15:52] LABS: Eosinophils # 0.2 K/mcL (0.0-0.6); Monocytes # 0.7 K/mcL (0.0-1.3); Neutrophils # 9.9 K/mcL (1.6-8.9)
[2020-02-23 15:53] LABS: Platelet Estimate Normal (Normal)
[2020-02-23] MEDS: DilTIAZem 50 MG/50 ML IV.SOLN IVC SCH (15:59)
[2020-02-23] MEDS: Heparin 25,000 UNIT/250 ML D5W 25,000 UNIT/250 ML IV.SOLN IVC SCH ×2 (15:59→18:22)
[2020-02-23] MEDS ORDERED: Spironolactone 25 MG TABLET PO SCH (21:00)
[2020-02-24] MEDS ORDERED: Tetracaine/Benzocaine/Butamben 1 SPRAY AEROSOL MM ONE (01:12)
[2020-02-24 04:42] LABS: Basophils # 0.1 K/mcL (0.0-0.2); Basophils % 0.3 %; Eosinophils % 0.1 %; Hematocrit 34.3 % (35.3-44.9); Hemoglobin 10.9 g/dL (11.5-15.4); Immature Granulocytes % 1.6 % (0-4); Lymphocytes # 1.4 K/mcL (0.6-4.6); Lymphocytes % 6.5 %; Mean Corpuscular HGB Conc 31.8 g/dL (31.6-35.5); Mean Corpuscular Hemoglobin 31.1 pg (28.0-33.3); Mean Platelet Volume 10.8 fL (9.4-12.4); Monocytes # 1.6 K/mcL (0.0-1.3); Monocytes % 7.8 %; Neutrophils # 17.6 K/mcL (1.6-8.9); Nucleated Red Blood Cells 0.1 /100 WBC (0); Platelet Count 223 K/mcL (140-400); Red Cell Distribution Width 14.2 % (11.5-14.5); Segmented Neutrophils % 83.7 %
[2020-02-24] MEDS: Pantoprazole 40 MG VIAL IVP SCH (05:11)
[2020-02-24 06:05] LABS: Platelet Estimate Normal (Normal)
[2020-02-24] MEDS ORDERED: 0.9 % Sodium Chloride 500 ML IV ONE (07:38)
[2020-02-24] MEDS ORDERED: Methylnaltrexone 12 MG/0.6 ML SYRINGE SQ ONE (07:49)
[2020-02-24] MEDS ORDERED: MethylPREDNISolone 40 MG/ML VIAL IVP SCH (09:00)
[2020-02-24] MEDS ORDERED: Hydrocortisone Sodium Succ 100 MG/2 ML VIAL IVP ONE (09:15)
[2020-02-24] MEDS ORDERED: 0.9 % Sodium Chloride 1,000 ML IVC SCH (09:15)
[2020-02-24] MEDS: Piperacillin/Tazobactam 3.375 GM in 0.9 % Sodium Chloride Mini Bag 100 ML IVPB SCH ×3 (09:32→23:25)
[2020-02-24] MEDS: Aspirin 81 MG TAB.CHEW PO SCH (09:35)
[2020-02-24] MEDS ORDERED: Amiodarone Premix 360 MG/200 ML BAG IVC ONE (09:59)
[2020-02-24] MEDS ORDERED: Amiodarone Premix 150 MG/100 ML BAG IVPB ONE (09:59)
[2020-02-24] MEDS ORDERED: *HR* Digoxin 0.5 MG/2 ML AMPUL IVP ONE (10:00)
[2020-02-24 10:12] LABS: Thyroid Stimulating Hormone 3.364 mcIU/mL (0.340-5.600)
[2020-02-24 10:13] LABS: Triiodothyronine (T3) Free 1.49 pg/mL (2.50-3.90)
[2020-02-24 10:15] LABS: Alanine Aminotransferase 14 Units/L (7-52); Albumin 2.7 g/dL (3.5-5.7); Albumin/Globulin Ratio 1.3 (1.1-2.2); Alkaline Phosphatase 65 Units/L (34-104); Aspartate Amino Transferase 17 Units/L (13-39); BUN/Creatinine Ratio 42 (6-26); Bilirubin,Total 0.6 mg/dL (0.3-1.0); Blood Urea Nitrogen 39 mg/dL (8-23); Calcium 7.7 mg/dL (8.6-10.3); Carbon Dioxide 18 mEq/L (23-29); Chloride 118 mEq/L (98-107); Globulin 2.1 g/dL (2.4-3.5); Glucose 96 mg/dL (70-105); Osmolality,Calculated 309 (280-300); Potassium 3.4 mEq/L (3.5-5.1); Sodium 145 mEq/L (136-145); Total Protein 4.8 g/dL (6.4-8.9); eGFR For African Americans > 60 (> 60); eGFR For Non-African Americans 57 (> 60)
[2020-02-24 10:21] LABS: ABG Base Excess -7 mEq/L (-2 to 3); ABG HCO3 15 mEq/L (21-27); ABG Oxygen Saturation 97 % (95-98); ABG PCO2 21 mmHg (35-45); ABG PH 7.47 pH Units (7.32-7.45); ABG PO2 82 mmHg (85-104); ABG TCO2 16 mEq/L (20-26)
[2020-02-24] MEDS ORDERED: Isovue-370 500 ML BOTTLE IVP ONE ×3 (10:51→10:55)
[2020-02-24 11:49] LABS: Magnesium 2.1 mg/dL (1.6-2.6)
[2020-02-24 12:43] LABS: Hematocrit 26.7 % (35.3-44.9); Hemoglobin 8.6 g/dL (11.5-15.4); Mean Corpuscular HGB Conc 32.2 g/dL (31.6-35.5); Mean Corpuscular Hemoglobin 31.6 pg (28.0-33.3); Mean Corpuscular Volume 98.2 fL (83.0-100.0); Mean Platelet Volume 10.4 fL (9.4-12.4); Platelet Count 172 K/mcL (140-400); Red Blood Count 2.72 M/mcL (3.82-4.97); Red Cell Distribution Width 14.1 % (11.5-14.5); White Blood Count 12.7 K/mcL (4.3-11.1)
[2020-02-24 12:48] LABS: VBG Ionized Calcium 1.12 mmol/L (1.15-1.35)
[2020-02-24] MEDS ORDERED: Phenylephrine 10 MG in 0.9 % Sodium Chloride 250 ML IVC SCH (13:15)
[2020-02-24 13:16] LABS: BUN/Creatinine Ratio 42 (6-26); Blood Urea Nitrogen 37 mg/dL (8-23); Calcium 7.4 mg/dL (8.6-10.3); Carbon Dioxide 17 mEq/L (23-29); Chloride 117 mEq/L (98-107); Glucose 110 mg/dL (70-105); Osmolality,Calculated 307 (280-300); Potassium 3.3 mEq/L (3.5-5.1); Sodium 144 mEq/L (136-145); eGFR For African Americans > 60 (> 60); eGFR For Non-African Americans > 60 (> 60)
[2020-02-24] MEDS: *HR* Metoprolol 5 MG/5 ML VIAL IVP PRN ×2 (13:59→20:19)
[2020-02-24] MEDS ORDERED: Aminoglycoside Consult 1 EACH MC ONE (15:11)
[2020-02-24] MEDS ORDERED: *HR* Digoxin 0.5 MG/2 ML AMPUL IVP SCH ×2 (15:29→18:00)
[2020-02-24 16:14] LABS: Hematocrit 28.6 % (35.3-44.9); Hemoglobin 9.3 g/dL (11.5-15.4)
[2020-02-24] MEDS: Amiodarone Premix 360 MG/200 ML BAG IVC SCH (17:08)
[2020-02-24] MEDS: Phenylephrine 50 MG in 0.9 % Sodium Chloride 250 ML IVC SCH (18:50)
[2020-02-24] MEDS: *HR* Digoxin 0.5 MG/2 ML AMPUL IVP SCH (21:33)
[2020-02-24] MEDS: Heparin 25,000 UNIT/250 ML D5W 25,000 UNIT/250 ML IV.SOLN IVC SCH (23:19)
[2020-02-25 00:45] LABS: Hematocrit 27.1 % (35.3-44.9); Hemoglobin 8.7 g/dL (11.5-15.4)
[2020-02-25] MEDS: *HR* Digoxin 0.5 MG/2 ML AMPUL IVP SCH (04:16)
[2020-02-25 04:54] LABS: Hematocrit 25.9 % (35.3-44.9); Hemoglobin 8.5 g/dL (11.5-15.4); Mean Corpuscular HGB Conc 32.8 g/dL (31.6-35.5); Mean Corpuscular Hemoglobin 32.3 pg (28.0-33.3); Mean Corpuscular Volume 98.5 fL (83.0-100.0); Mean Platelet Volume 10.7 fL (9.4-12.4); Platelet Count 211 K/mcL (140-400); Red Blood Count 2.63 M/mcL (3.82-4.97); Red Cell Distribution Width 14.2 % (11.5-14.5); White Blood Count 16.8 K/mcL (4.3-11.1)
[2020-02-25 05:12] LABS: BUN/Creatinine Ratio 41 (6-26); Blood Urea Nitrogen 36 mg/dL (8-23); Calcium 7.5 mg/dL (8.6-10.3); Carbon Dioxide 18 mEq/L (23-29); Chloride 119 mEq/L (98-107); Glucose 111 mg/dL (70-105); Osmolality,Calculated 311 (280-300); Potassium 3.4 mEq/L (3.5-5.1); Sodium 146 mEq/L (136-145); eGFR For African Americans > 60 (> 60); eGFR For Non-African Americans > 60 (> 60)
[2020-02-25] MEDS: Pantoprazole 40 MG VIAL IVP SCH (05:19)
[2020-02-25] MEDS: Amiodarone Premix 360 MG/200 ML BAG IVC SCH ×2 (05:30→17:44)
[2020-02-25] MEDS: Aspirin 81 MG TAB.CHEW PO SCH (08:46)
[2020-02-25] MEDS: Piperacillin/Tazobactam 3.375 GM in 0.9 % Sodium Chloride Mini Bag 100 ML IVPB SCH ×2 (08:51→16:06)
[2020-02-25] MEDS ORDERED: Potassium Chloride 40 MEQ, Lidocaine 1% 2 ML in 0.9 % Sodium Chloride 500 ML IVPB ONE (10:38)
[2020-02-25] MEDS ORDERED: Dextrose Gel 15 GM/37.5 ML TUBE PO PRN ×2 (10:49)
[2020-02-25] MEDS ORDERED: *HR* Dextrose 50 % in Water (Vial) 50 ML VIAL IVP PRN (10:49)
[2020-02-25] MEDS ORDERED: D5% in Water 1,000 ML IVC PRN (10:49)
[2020-02-25] MEDS: Insulin LISPRO 300 UNITS/3 ML VIAL SQ SCH ×3 (12:13→20:09)
[2020-02-25 12:35] LABS: VBG Ionized Calcium 1.17 mmol/L (1.15-1.35)
[2020-02-25 12:55] LABS: Phosphorous 2.5 mg/dL (2.7-4.5)
[2020-02-25] MEDS ORDERED: D10% in Water 500 ML IVC PRN (12:59)
[2020-02-25] MEDS: Thiamine (B-1) 100 MG in 0.9 % Sodium Chloride 50 ML IVPB SCH (16:05)
[2020-02-25] MEDS ORDERED: Clinimix E 5%-15% SOLUTION 2,000 ML with MVI, adult with vitamin K 10 ML IVC SCH (17:00)
[2020-02-26] MEDS: Piperacillin/Tazobactam 3.375 GM in 0.9 % Sodium Chloride Mini Bag 100 ML IVPB SCH ×3 (00:12→17:14)
[2020-02-26] MEDS: Insulin LISPRO 300 UNITS/3 ML VIAL SQ SCH ×6 (03:31→19:48)
[2020-02-26 04:28] LABS: Basophils % 0.1 %; Eosinophils # 0.2 K/mcL (0.0-0.6); Eosinophils % 1.3 %; Hematocrit 23.2 % (35.3-44.9); Immature Granulocytes % 1.3 % (0-4); Lymphocytes # 0.8 K/mcL (0.6-4.6); Lymphocytes % 6.5 %; Mean Corpuscular HGB Conc 33.2 g/dL (31.6-35.5); Mean Corpuscular Hemoglobin 33.2 pg (28.0-33.3); Mean Platelet Volume 10.4 fL (9.4-12.4); Monocytes # 0.8 K/mcL (0.0-1.3); Monocytes % 6.6 %; Neutrophils # 10.7 K/mcL (1.6-8.9); Platelet Count 178 K/mcL (140-400); Red Blood Count 2.32 M/mcL (3.82-4.97); Red Cell Distribution Width 14.1 % (11.5-14.5); Segmented Neutrophils % 84.2 %; White Blood Count 12.7 K/mcL (4.3-11.1)
[2020-02-26 04:33] LABS: Hemoglobin 7.7 g/dL (11.5-15.4)
[2020-02-26 04:51] LABS: Alanine Aminotransferase 14 Units/L (7-52); Albumin 2.5 g/dL (3.5-5.7); Albumin/Globulin Ratio 1.5 (1.1-2.2); Alkaline Phosphatase 54 Units/L (34-104); Aspartate Amino Transferase 21 Units/L (13-39); BUN/Creatinine Ratio 46 (6-26); Bilirubin,Total 0.4 mg/dL (0.3-1.0); Blood Urea Nitrogen 33 mg/dL (8-23); Calcium 7.5 mg/dL (8.6-10.3); Carbon Dioxide 19 mEq/L (23-29); Chloride 121 mEq/L (98-107); Globulin 1.7 g/dL (2.4-3.5); Glucose 142 mg/dL (70-105); Osmolality,Calculated 314 (280-300); Potassium 3.4 mEq/L (3.5-5.1); Sodium 147 mEq/L (136-145); Total Protein 4.2 g/dL (6.4-8.9); eGFR For African Americans > 60 (> 60); eGFR For Non-African Americans > 60 (> 60)
[2020-02-26 05:16] LABS: Phosphorous 2.1 mg/dL (2.7-4.5)
[2020-02-26] MEDS: Pantoprazole 40 MG VIAL IVP SCH (06:01)
[2020-02-26] MEDS: Thiamine (B-1) 100 MG in 0.9 % Sodium Chloride 50 ML IVPB SCH (08:05)
[2020-02-26] MEDS: Aspirin 81 MG TAB.CHEW PO SCH (08:05)
[2020-02-26] MEDS: Amiodarone Premix 360 MG/200 ML BAG IVC SCH (08:08)
[2020-02-26] MEDS ORDERED: Potassium Phosphate 44 MEQ in 0.9 % Sodium Chloride 250 ML IVPB ONE (11:07)
[2020-02-26] MEDS: Phenylephrine 50 MG in 0.9 % Sodium Chloride 250 ML IVC SCH ×2 (11:58→17:16)
[2020-02-26] MEDS ORDERED: 0.9 % Sodium Chloride 250 ML ONE (13:40)
[2020-02-26] MEDS ORDERED: Clinimix E 5%-15% SOLUTION 2,000 ML with MVI, adult with vitamin K 10 ML IVC SCH (17:00)
[2020-02-26] MEDS ORDERED: *HR* Digoxin 0.125 MG TABLET PO SCH (18:00)
[2020-02-26 19:12] LABS: Hematocrit 27.3 % (35.3-44.9); Hemoglobin 8.7 g/dL (11.5-15.4)
[2020-02-26] MEDS ORDERED: Melatonin 3 MG TABLET PO PRN (21:48)
[2020-02-27] MEDS: Piperacillin/Tazobactam 3.375 GM in 0.9 % Sodium Chloride Mini Bag 100 ML IVPB SCH ×3 (00:13→16:54)
[2020-02-27] MEDS: Insulin LISPRO 300 UNITS/3 ML VIAL SQ SCH ×6 (00:13→21:45)
[2020-02-27 04:31] LABS: Basophils % 0.3 %; Eosinophils # 0.1 K/mcL (0.0-0.6); Eosinophils % 1.3 %; Hematocrit 26.1 % (35.3-44.9); Hemoglobin 8.3 g/dL (11.5-15.4); Immature Granulocytes % 1.2 % (0-4); Lymphocytes # 0.8 K/mcL (0.6-4.6); Lymphocytes % 7.3 %; Mean Corpuscular HGB Conc 31.8 g/dL (31.6-35.5); Mean Corpuscular Hemoglobin 29.5 pg (28.0-33.3); Mean Platelet Volume 10.3 fL (9.4-12.4); Monocytes # 0.7 K/mcL (0.0-1.3); Monocytes % 6.3 %; Nucleated Red Blood Cells 0.2 /100 WBC (0); Platelet Count 134 K/mcL (140-400); Red Blood Count 2.81 M/mcL (3.82-4.97); Red Cell Distribution Width 19.5 % (11.5-14.5); Segmented Neutrophils % 83.6 %; White Blood Count 10.7 K/mcL (4.3-11.1)
[2020-02-27 04:32] LABS: Mean Corpuscular Volume 92.9 fL (83.0-100.0)
[2020-02-27 04:33] LABS: VBG Ionized Calcium 1.24 mmol/L (1.15-1.35)
[2020-02-27 04:42] LABS: Magnesium 1.9 mg/dL (1.6-2.6); Phosphorous 3.1 mg/dL (2.7-4.5)
[2020-02-27 04:43] LABS: Alanine Aminotransferase 17 Units/L (7-52); Albumin 2.4 g/dL (3.5-5.7); Albumin/Globulin Ratio 1.5 (1.1-2.2); Alkaline Phosphatase 53 Units/L (34-104); Aspartate Amino Transferase 19 Units/L (13-39); BUN/Creatinine Ratio 46 (6-26); Bilirubin,Total 0.4 mg/dL (0.3-1.0); Blood Urea Nitrogen 26 mg/dL (8-23); Calcium 7.8 mg/dL (8.6-10.3); Carbon Dioxide 21 mEq/L (23-29); Chloride 119 mEq/L (98-107); Globulin 1.6 g/dL (2.4-3.5); Glucose 112 mg/dL (70-105); Osmolality,Calculated 304 (280-300); Potassium 3.8 mEq/L (3.5-5.1); Sodium 144 mEq/L (136-145); eGFR For African Americans > 60 (> 60); eGFR For Non-African Americans > 60 (> 60)
[2020-02-27] MEDS: Pantoprazole 40 MG VIAL IVP SCH (06:03)
[2020-02-27] MEDS: Aspirin 81 MG TAB.CHEW PO SCH (08:21)
[2020-02-27] MEDS: Thiamine (B-1) 100 MG in 0.9 % Sodium Chloride 50 ML IVPB SCH (08:24)
[2020-02-27] MEDS ORDERED: D10% in Water 500 ML IVC PRN (11:35)
[2020-02-27] MEDS ORDERED: Clinimix E 5%-15% SOLUTION 2,000 ML with MVI, adult with vitamin K 10 ML IVC SCH ×3 (11:35→17:00)
[2020-02-27] MEDS ORDERED: Naloxone 0.4 MG/ML INJ IVP PRN (11:35)
[2020-02-27] MEDS ORDERED: *HR* Metoprolol 5 MG/5 ML VIAL IVP PRN (11:35)
[2020-02-27] MEDS ORDERED: Melatonin 3 MG TABLET PO PRN (11:35)
[2020-02-27] MEDS ORDERED: *HR* Dextrose 50 % in Water (Vial) 50 ML VIAL IVP PRN (11:35)
[2020-02-27] MEDS ORDERED: Acetaminophen 325 MG TABLET PO PRN (11:35)
[2020-02-27] MEDS ORDERED: D5% in Water 1,000 ML IVC PRN (11:35)
[2020-02-27] MEDS ORDERED: Dextrose Gel 15 GM/37.5 ML TUBE PO PRN ×2 (11:35)
[2020-02-27] MEDS ORDERED: *HR* HYDROcodone/Acet 5/325 mg TABLET PO PRN (11:35)
[2020-02-27] MEDS: *HR* Digoxin 0.125 MG TABLET PO SCH (17:12)
[2020-02-28] MEDS: Piperacillin/Tazobactam 3.375 GM in 0.9 % Sodium Chloride Mini Bag 100 ML IVPB SCH ×3 (00:31→15:36)
[2020-02-28 04:52] LABS: Hematocrit 25.4 % (35.3-44.9); Hemoglobin 8.1 g/dL (11.5-15.4); Mean Corpuscular HGB Conc 31.9 g/dL (31.6-35.5); Mean Corpuscular Hemoglobin 29.6 pg (28.0-33.3); Mean Corpuscular Volume 92.7 fL (83.0-100.0); Mean Platelet Volume 10.5 fL (9.4-12.4); Platelet Count 127 K/mcL (140-400); Red Blood Count 2.74 M/mcL (3.82-4.97); Red Cell Distribution Width 19.4 % (11.5-14.5); White Blood Count 10.8 K/mcL (4.3-11.1)
[2020-02-28 05:11] LABS: BUN/Creatinine Ratio 51 (6-26); Blood Urea Nitrogen 26 mg/dL (8-23); Calcium 7.7 mg/dL (8.6-10.3); Carbon Dioxide 21 mEq/L (23-29); Chloride 116 mEq/L (98-107); Glucose 108 mg/dL (70-105); Magnesium 1.9 mg/dL (1.6-2.6); Osmolality,Calculated 297 (280-300); Phosphorous 3.4 mg/dL (2.7-4.5); Sodium 141 mEq/L (136-145); eGFR For African Americans > 60 (> 60); eGFR For Non-African Americans > 60 (> 60)
[2020-02-28] MEDS: Pantoprazole 40 MG VIAL IVP SCH (06:12)
[2020-02-28] MEDS: Insulin LISPRO 300 UNITS/3 ML VIAL SQ SCH ×3 (08:08→17:35)
[2020-02-28] MEDS: Aspirin 81 MG TAB.CHEW PO SCH (09:36)
[2020-02-28] MEDS: Thiamine (B-1) 100 MG in 0.9 % Sodium Chloride 50 ML IVPB SCH (09:50)
[2020-02-28] MEDS ORDERED: Clinimix E 5%-15% SOLUTION 2,000 ML with MVI, adult with vitamin K 10 ML IVC SCH ×2 (17:00)
[2020-02-28] MEDS: *HR* Digoxin 0.125 MG TABLET PO SCH (17:52)
[2020-02-29] MEDS: Insulin LISPRO 300 UNITS/3 ML VIAL SQ SCH ×4 (00:31→17:08)
[2020-02-29] MEDS: Piperacillin/Tazobactam 3.375 GM in 0.9 % Sodium Chloride Mini Bag 100 ML IVPB SCH ×3 (00:48→17:06)
[2020-02-29 04:16] LABS: Basophils % 0.2 %; Eosinophils # 0.1 K/mcL (0.0-0.6); Eosinophils % 1.2 %; Hematocrit 25.3 % (35.3-44.9); Immature Granulocytes % 0.9 % (0-4); Lymphocytes % 8.5 %; Mean Corpuscular HGB Conc 31.6 g/dL (31.6-35.5); Mean Corpuscular Hemoglobin 30.1 pg (28.0-33.3); Mean Corpuscular Volume 95.1 fL (83.0-100.0); Mean Platelet Volume 10.7 fL (9.4-12.4); Monocytes # 0.9 K/mcL (0.0-1.3); Monocytes % 7.9 %; Neutrophils # 9.2 K/mcL (1.6-8.9); Platelet Count 136 K/mcL (140-400); Red Blood Count 2.66 M/mcL (3.82-4.97); Red Cell Distribution Width 19.1 % (11.5-14.5); Segmented Neutrophils % 81.3 %; White Blood Count 11.3 K/mcL (4.3-11.1)
[2020-02-29 04:36] LABS: BUN/Creatinine Ratio 51 (6-26); Blood Urea Nitrogen 24 mg/dL (8-23); Calcium 7.6 mg/dL (8.6-10.3); Carbon Dioxide 21 mEq/L (23-29); Chloride 112 mEq/L (98-107); Glucose 109 mg/dL (70-105); Magnesium 1.8 mg/dL (1.6-2.6); Osmolality,Calculated 287 (280-300); Potassium 4.1 mEq/L (3.5-5.1); Sodium 136 mEq/L (136-145); eGFR For African Americans > 60 (> 60); eGFR For Non-African Americans > 60 (> 60)
[2020-02-29] MEDS: Pantoprazole 40 MG VIAL IVP SCH (06:47)
[2020-02-29] MEDS: Aspirin 81 MG TAB.CHEW PO SCH (08:37)
[2020-02-29] MEDS: Thiamine (B-1) 100 MG in 0.9 % Sodium Chloride 50 ML IVPB SCH (08:39)
[2020-02-29] MEDS: *HR* Digoxin 0.125 MG TABLET PO SCH (18:27)
[2020-03-01] MEDS: Insulin LISPRO 300 UNITS/3 ML VIAL SQ SCH ×5 (00:01→20:10)
[2020-03-01] MEDS: Piperacillin/Tazobactam 3.375 GM in 0.9 % Sodium Chloride Mini Bag 100 ML IVPB SCH ×4 (01:21→23:41)
[2020-03-01] MEDS: Pantoprazole 40 MG VIAL IVP SCH (06:44)
[2020-03-01 06:54] LABS: Basophils % 0.3 %; Eosinophils # 0.1 K/mcL (0.0-0.6); Eosinophils % 0.9 %; Hematocrit 27.2 % (35.3-44.9); Hemoglobin 8.6 g/dL (11.5-15.4); Immature Granulocytes % 0.7 % (0-4); Lymphocytes # 1.3 K/mcL (0.6-4.6); Lymphocytes % 12.8 %; Mean Corpuscular HGB Conc 31.6 g/dL (31.6-35.5); Mean Corpuscular Hemoglobin 30.9 pg (28.0-33.3); Mean Corpuscular Volume 97.8 fL (83.0-100.0); Monocytes # 0.9 K/mcL (0.0-1.3); Monocytes % 9.1 %; Neutrophils # 7.6 K/mcL (1.6-8.9); Platelet Count 176 K/mcL (140-400); Red Blood Count 2.78 M/mcL (3.82-4.97); Red Cell Distribution Width 19.5 % (11.5-14.5); Segmented Neutrophils % 76.2 %; White Blood Count 9.9 K/mcL (4.3-11.1)
[2020-03-01 07:17] LABS: BUN/Creatinine Ratio 36 (6-26); Blood Urea Nitrogen 21 mg/dL (8-23); Carbon Dioxide 22 mEq/L (23-29); Chloride 112 mEq/L (98-107); Glucose 75 mg/dL (70-105); Magnesium 1.7 mg/dL (1.6-2.6); Osmolality,Calculated 290 (280-300); Phosphorous 3.4 mg/dL (2.7-4.5); Potassium 4.1 mEq/L (3.5-5.1); Sodium 139 mEq/L (136-145); eGFR For African Americans > 60 (> 60); eGFR For Non-African Americans > 60 (> 60)
[2020-03-01] MEDS: Apixaban 2.5 MG TABLET PO SCH ×2 (08:20→20:03)
[2020-03-01] MEDS: *HR* Digoxin 0.125 MG TABLET PO SCH (18:25)
[2020-03-02 04:51] LABS: White Blood Count 8.1 K/mcL (4.3-11.1)
[2020-03-02 04:52] LABS: Basophils % 0.5 %; Eosinophils # 0.1 K/mcL (0.0-0.6); Eosinophils % 1.4 %; Hematocrit 27.1 % (35.3-44.9); Hemoglobin 8.4 g/dL (11.5-15.4); Immature Granulocytes % 0.7 % (0-4); Lymphocytes # 1.1 K/mcL (0.6-4.6); Lymphocytes % 13.5 %; Mean Corpuscular Hemoglobin 29.7 pg (28.0-33.3); Mean Corpuscular Volume 95.8 fL (83.0-100.0); Mean Platelet Volume 10.7 fL (9.4-12.4); Monocytes # 0.8 K/mcL (0.0-1.3); Monocytes % 10.2 %; Platelet Count 222 K/mcL (140-400); Red Blood Count 2.83 M/mcL (3.82-4.97); Red Cell Distribution Width 19.3 % (11.5-14.5); Segmented Neutrophils % 73.7 %
[2020-03-02 05:08] LABS: BUN/Creatinine Ratio 32 (6-26); Blood Urea Nitrogen 20 mg/dL (8-23); Calcium 7.6 mg/dL (8.6-10.3); Carbon Dioxide 23 mEq/L (23-29); Chloride 110 mEq/L (98-107); Glucose 79 mg/dL (70-105); Osmolality,Calculated 292 (280-300); Sodium 140 mEq/L (136-145); eGFR For African Americans > 60 (> 60); eGFR For Non-African Americans > 60 (> 60)
[2020-03-02] MEDS: Piperacillin/Tazobactam 3.375 GM in 0.9 % Sodium Chloride Mini Bag 100 ML IVPB SCH (07:01)
[2020-03-02] MEDS: Apixaban 2.5 MG TABLET PO SCH ×2 (07:01→22:03)
[2020-03-02] MEDS: *HR* Digoxin 0.125 MG TABLET PO SCH (18:05)
[2020-03-02] MEDS ORDERED: Albumin 25% 25gram/100mL 25 GM/100 ML IV.SOLN IVPB ONE (22:49)
[2020-03-03 05:06] LABS: Basophils % 0.3 %; Eosinophils # 0.1 K/mcL (0.0-0.6); Eosinophils % 1.2 %; Hematocrit 24.5 % (35.3-44.9); Hemoglobin 7.7 g/dL (11.5-15.4); Immature Granulocytes % 0.5 % (0-4); Lymphocytes # 1.2 K/mcL (0.6-4.6); Lymphocytes % 18.2 %; Mean Corpuscular HGB Conc 31.4 g/dL (31.6-35.5); Mean Corpuscular Hemoglobin 31.3 pg (28.0-33.3); Mean Corpuscular Volume 99.6 fL (83.0-100.0); Mean Platelet Volume 10.2 fL (9.4-12.4); Monocytes # 0.8 K/mcL (0.0-1.3); Monocytes % 12.4 %; Neutrophils # 4.5 K/mcL (1.6-8.9); Platelet Count 228 K/mcL (140-400); Red Blood Count 2.46 M/mcL (3.82-4.97); Red Cell Distribution Width 19.5 % (11.5-14.5); Segmented Neutrophils % 67.4 %; White Blood Count 6.6 K/mcL (4.3-11.1)
[2020-03-03 05:24] LABS: BUN/Creatinine Ratio 35 (6-26); Blood Urea Nitrogen 19 mg/dL (8-23); Calcium 7.8 mg/dL (8.6-10.3); Carbon Dioxide 24 mEq/L (23-29); Chloride 112 mEq/L (98-107); Glucose 82 mg/dL (70-105); Osmolality,Calculated 293 (280-300); Potassium 3.7 mEq/L (3.5-5.1); Sodium 141 mEq/L (136-145); eGFR For African Americans > 60 (> 60); eGFR For Non-African Americans > 60 (> 60)
[2020-03-03] MEDS: Apixaban 2.5 MG TABLET PO SCH ×2 (08:30→21:48)
[2020-03-03] MEDS: Simethicone 80 MG TAB.CHEW PO PRN (14:02)
[2020-03-03] MEDS: *HR* Digoxin 0.125 MG TABLET PO SCH (18:00)
[2020-03-03] MEDS ORDERED: Isovue-370 500 ML BOTTLE IVP ONE (19:54)
[2020-03-03] MEDS ORDERED: *HR* OxyCODONE Immed Rel 5 MG TABLET PO ONE (20:05)
[2020-03-04 04:48] LABS: Basophils % 0.5 %; Eosinophils # 0.1 K/mcL (0.0-0.6); Eosinophils % 0.7 %; Hematocrit 26.9 % (35.3-44.9); Hemoglobin 8.6 g/dL (11.5-15.4); Immature Granulocytes % 0.5 % (0-4); Lymphocytes # 1.2 K/mcL (0.6-4.6); Lymphocytes % 16.6 %; Mean Corpuscular Hemoglobin 31.4 pg (28.0-33.3); Mean Corpuscular Volume 98.2 fL (83.0-100.0); Mean Platelet Volume 10.2 fL (9.4-12.4); Monocytes # 0.7 K/mcL (0.0-1.3); Monocytes % 8.8 %; Neutrophils # 5.4 K/mcL (1.6-8.9); Platelet Count 288 K/mcL (140-400); Red Blood Count 2.74 M/mcL (3.82-4.97); Red Cell Distribution Width 19.2 % (11.5-14.5); Segmented Neutrophils % 72.9 %; White Blood Count 7.5 K/mcL (4.3-11.1)
[2020-03-04 05:05] LABS: BUN/Creatinine Ratio 26 (6-26); Blood Urea Nitrogen 15 mg/dL (8-23); Calcium 7.9 mg/dL (8.6-10.3); Carbon Dioxide 24 mEq/L (23-29); Chloride 110 mEq/L (98-107); Glucose 82 mg/dL (70-105); Osmolality,Calculated 290 (280-300); Sodium 140 mEq/L (136-145); eGFR For African Americans > 60 (> 60); eGFR For Non-African Americans > 60 (> 60)
[2020-03-04] MEDS: Simethicone 80 MG TAB.CHEW PO PRN (09:33)
[2020-03-04] MEDS: Apixaban 2.5 MG TABLET PO SCH ×2 (09:33→20:45)
[2020-03-04] MEDS: Simethicone 80 MG TAB.CHEW PO SCH ×3 (11:09→20:45)
[2020-03-04] MEDS: *HR* Digoxin 0.125 MG TABLET PO SCH (17:10)
[2020-03-05] MEDS: Apixaban 2.5 MG TABLET PO SCH (08:04)
[2020-03-05] MEDS: Simethicone 80 MG TAB.CHEW PO SCH (08:05)
[2020-03-05 11:37] VITALS: BP 137/75
== END 2020-03-05 12:09 | DRG 871 ==
LOC: 3BNU 20:46 → EMEROOARM 20:46 → SUATTDRO 22:39 → 3BNU 23:52 → SUATTDRO 02-20 14:02 → 3ANU 02-21 13:22 → ICNU 02-22 15:07 → 2ANU 02-24 04:48 → ICNU 02-24 10:35 → 3ANU 02-27 16:24
PROVIDERS: ADMIT Student in an Organized Health Care Education/Training Program; ATTEND Family Medicine

== ENCOUNTER 2020-03-07 08:55 | Observation (INO) ==
[2020-03-07] MEDS ORDERED: 0.9 % Sodium Chloride 1,000 ML IVC ONE (09:35)
[2020-03-07] MEDS ORDERED: Isovue-370 500 ML BOTTLE IVP ONE (09:41)
[2020-03-07 09:46] LABS: Basophils % 0.5 %; Eosinophils # 0.1 K/mcL (0.0-0.6); Eosinophils % 1.1 %; Hematocrit 30.8 % (35.3-44.9); Hemoglobin 9.7 g/dL (11.5-15.4); Immature Granulocytes % 0.5 % (0-4); Lymphocytes % 14.9 %; Mean Corpuscular HGB Conc 31.5 g/dL (31.6-35.5); Mean Corpuscular Volume 98.4 fL (83.0-100.0); Mean Platelet Volume 9.7 fL (9.4-12.4); Monocytes # 0.5 K/mcL (0.0-1.3); Monocytes % 6.9 %; Platelet Count 343 K/mcL (140-400); Red Blood Count 3.13 M/mcL (3.82-4.97); Red Cell Distribution Width 19.3 % (11.5-14.5); Segmented Neutrophils % 76.1 %; White Blood Count 6.5 K/mcL (4.3-11.1)
[2020-03-07 09:55] LABS: INR 1.3; Prothrombin Time 14.3 Seconds (9.4-12.1)
[2020-03-07 09:58] LABS: Activated Partial Thrombo Time 30.5 Seconds (26.0-36.0)
[2020-03-07 10:12] LABS: Alanine Aminotransferase 16 Units/L (7-52); Albumin 2.6 g/dL (3.5-5.7); Albumin/Globulin Ratio 1.3 (1.1-2.2); Alkaline Phosphatase 71 Units/L (34-104); Aspartate Amino Transferase 18 Units/L (13-39); BUN/Creatinine Ratio 26 (6-26); Bilirubin,Direct 0.1 mg/dL (0.0-0.2); Bilirubin,Indirect 0.3 mg/dL (0.0-1.0); Bilirubin,Total 0.4 mg/dL (0.3-1.0); Blood Urea Nitrogen 18 mg/dL (8-23); Calcium 7.7 mg/dL (8.6-10.3); Carbon Dioxide 26 mEq/L (23-29); Chloride 109 mEq/L (98-107); Glucose 118 mg/dL (70-105); Osmolality,Calculated 293 (280-300); Potassium 3.6 mEq/L (3.5-5.1); Sodium 140 mEq/L (136-145); Total Protein 4.6 g/dL (6.4-8.9); eGFR For African Americans > 60 (> 60); eGFR For Non-African Americans > 60 (> 60)
[2020-03-07 10:17] LABS: Troponin I 0.06 ng/mL (< 0.04)
[2020-03-07 11:53] LABS: Hyaline Casts,Urine Few per lpf (None Seen); Mucus,Urine Few per lpf (None-Few); Squamous Epithelial Cell,Urine Few per hpf (None-Few)
[2020-03-07 12:13] LABS: Bacteria,Urine Few per hpf (None-Few)
[2020-03-07 12:21] LABS: Bilirubin,Urine Negative (Negative); Blood,Urine Negative (Negative); Clarity,Urine Clear (Clear); Color,Urine Light-Yellow (Yellow); Glucose,Urine (UA) Normal (Normal); Ketones,Urine Negative (Negative); Leukocyte Esterase,Urine Negative (Negative); Nitrite,Urine Negative (Negative); Protein,Urine Negative (Neg-Trace); Specific Gravity,Urine 1.019 (1.010-1.025); Urobilinogen,Urine Normal (Normal)
[2020-03-07] MEDS ORDERED: Naloxone 0.4 MG/ML INJ IVP PRN (12:54)
[2020-03-07] MEDS ORDERED: *HR* Promethazine 25 MG/ML VIAL IVP PRN (12:54)
[2020-03-07] MEDS: Simethicone 80 MG TAB.CHEW PO SCH ×2 (18:53→20:17)
[2020-03-07] MEDS: Spironolactone 25 MG TABLET PO SCH (18:54)
[2020-03-07] MEDS: *HR* Digoxin 0.125 MG TABLET PO SCH (18:54)
[2020-03-07] MEDS: Apixaban 2.5 MG TABLET PO SCH (20:17)
[2020-03-08 05:01] LABS: Hematocrit 30.4 % (35.3-44.9); Hemoglobin 9.2 g/dL (11.5-15.4); Mean Corpuscular HGB Conc 30.3 g/dL (31.6-35.5); Mean Platelet Volume 9.4 fL (9.4-12.4); Platelet Count 294 K/mcL (140-400); Red Blood Count 3.07 M/mcL (3.82-4.97); White Blood Count 5.2 K/mcL (4.3-11.1)
[2020-03-08 05:21] LABS: BUN/Creatinine Ratio 28 (6-26); Blood Urea Nitrogen 19 mg/dL (8-23); Calcium 7.7 mg/dL (8.6-10.3); Carbon Dioxide 22 mEq/L (23-29); Chloride 112 mEq/L (98-107); Glucose 129 mg/dL (70-105); Osmolality,Calculated 294 (280-300); Potassium 3.4 mEq/L (3.5-5.1); Sodium 140 mEq/L (136-145); eGFR For African Americans > 60 (> 60); eGFR For Non-African Americans > 60 (> 60)
[2020-03-08] MEDS: Apixaban 2.5 MG TABLET PO SCH ×2 (08:57→20:48)
[2020-03-08] MEDS: Simethicone 80 MG TAB.CHEW PO SCH ×3 (08:57→20:48)
[2020-03-08] MEDS ORDERED: Furosemide 20 MG/2 ML VIAL IVP SCH (09:00)
[2020-03-08] MEDS: *HR* Digoxin 0.125 MG TABLET PO SCH (14:42)
[2020-03-09 02:38] LABS: Hematocrit 26.7 % (35.3-44.9); Hemoglobin 8.3 g/dL (11.5-15.4); Mean Corpuscular HGB Conc 31.1 g/dL (31.6-35.5); Mean Corpuscular Hemoglobin 30.3 pg (28.0-33.3); Mean Corpuscular Volume 97.4 fL (83.0-100.0); Mean Platelet Volume 9.6 fL (9.4-12.4); Platelet Count 291 K/mcL (140-400); Red Blood Count 2.74 M/mcL (3.82-4.97); Red Cell Distribution Width 18.9 % (11.5-14.5); White Blood Count 4.5 K/mcL (4.3-11.1)
[2020-03-09 02:58] LABS: BUN/Creatinine Ratio 37 (6-26); Blood Urea Nitrogen 21 mg/dL (8-23); Calcium 7.6 mg/dL (8.6-10.3); Carbon Dioxide 22 mEq/L (23-29); Chloride 112 mEq/L (98-107); Glucose 89 mg/dL (70-105); Osmolality,Calculated 294 (280-300); Potassium 3.6 mEq/L (3.5-5.1); Sodium 141 mEq/L (136-145); eGFR For African Americans > 60 (> 60); eGFR For Non-African Americans > 60 (> 60)
[2020-03-09] MEDS: Spironolactone 25 MG TABLET PO SCH (08:55)
[2020-03-09] MEDS: Apixaban 2.5 MG TABLET PO SCH (08:55)
[2020-03-09] MEDS: Simethicone 80 MG TAB.CHEW PO SCH ×2 (08:56→15:00)
[2020-03-09] MEDS: *HR* Digoxin 0.125 MG TABLET PO SCH (15:00)
[2020-03-09 15:22] VITALS: BP 153/66
== END 2020-03-09 16:54 ==
LOC: 2ANU 08:55 → EMEROOARM 08:55 → SUATTDRO 15:19 → 2ANU 15:58
PROVIDERS: ADMIT Internal Medicine; ATTEND Family Medicine

== ENCOUNTER 2021-06-25 15:10 | Inpatient (IN) ==
[2021-06-25] MEDS ORDERED: *HR* FentaNYL (PF) 100 MCG/2 ML VIAL IVP STA (15:46)
[2021-06-25] MEDS ORDERED: Naloxone 0.4 MG/ML INJ IVP PRN (17:55)
[2021-06-25] MEDS ORDERED: Ondansetron 4 MG/2 ML VIAL IVP PRN (17:55)
[2021-06-25] MEDS ORDERED: Acetaminophen 325 MG TABLET PO PRN (17:57)
[2021-06-25] MEDS ORDERED: *HR* FentaNYL (PF) 100 MCG/2 ML VIAL IVP PRN (17:58)
[2021-06-25] MEDS ORDERED: *HR* Metoprolol 5 MG/5 ML VIAL IVP PRN (18:24)
[2021-06-25 18:42] LABS: Basophils % 0.2 %; Eosinophils % 0.2 %; Hematocrit 35.5 % (35.3-44.9); Hemoglobin 11.6 g/dL (11.5-15.4); Immature Granulocytes % 0.3 % (0-4); Lymphocytes # 0.9 K/mcL (0.6-4.6); Mean Corpuscular HGB Conc 32.7 g/dL (31.6-35.5); Mean Corpuscular Hemoglobin 32.2 pg (28.0-33.3); Mean Corpuscular Volume 98.6 fL (83.0-100.0); Mean Platelet Volume 9.9 fL (9.4-12.4); Monocytes % 7.3 %; Neutrophils # 11.1 K/mcL (1.6-8.9); Platelet Count 173 K/mcL (140-400); Red Cell Distribution Width 12.9 % (11.5-14.5); White Blood Count 13.1 K/mcL (4.3-11.1)
[2021-06-25 19:23] LABS: BUN/Creatinine Ratio 26 (6-26); Blood Urea Nitrogen 26 mg/dL (8-23); Calcium 9.3 mg/dL (8.6-10.3); Carbon Dioxide 26 mEq/L (23-29); Chloride 105 mEq/L (98-107); Glucose 135 mg/dL (70-105); Osmolality,Calculated 299 (280-300); Potassium 4.1 mEq/L (3.5-5.1); Sodium 141 mEq/L (136-145); eGFR For African Americans > 60 (> 60); eGFR For Non-African Americans 52 (> 60)
[2021-06-25] MEDS: *HR* FentaNYL (PF) 100 MCG/2 ML VIAL IVP PRN (20:26)
[2021-06-25] MEDS: *HR* Heparin 5,000 UNIT/ML VIAL SQ SCH (20:26)
[2021-06-26] MEDS: *HR* FentaNYL (PF) 100 MCG/2 ML VIAL IVP PRN (04:11)
[2021-06-26 04:20] LABS: Basophils % 0.1 %; Hematocrit 33.4 % (35.3-44.9); Immature Granulocytes % 0.2 % (0-4); Lymphocytes # 0.9 K/mcL (0.6-4.6); Lymphocytes % 10.9 %; Mean Corpuscular HGB Conc 32.9 g/dL (31.6-35.5); Mean Corpuscular Hemoglobin 31.9 pg (28.0-33.3); Mean Corpuscular Volume 96.8 fL (83.0-100.0); Mean Platelet Volume 10.4 fL (9.4-12.4); Monocytes # 0.8 K/mcL (0.0-1.3); Neutrophils # 6.6 K/mcL (1.6-8.9); Platelet Count 171 K/mcL (140-400); Red Blood Count 3.45 M/mcL (3.82-4.97); Segmented Neutrophils % 79.8 %; White Blood Count 8.3 K/mcL (4.3-11.1)
[2021-06-26 04:25] LABS: INR 1.1; Prothrombin Time 12.8 Seconds (9.4-12.1)
[2021-06-26 04:30] LABS: BUN/Creatinine Ratio 27 (6-26); Blood Urea Nitrogen 25 mg/dL (8-23); Calcium 9.2 mg/dL (8.6-10.3); Carbon Dioxide 25 mEq/L (23-29); Chloride 106 mEq/L (98-107); Glucose 124 mg/dL (70-105); Osmolality,Calculated 296 (280-300); Sodium 140 mEq/L (136-145); eGFR For African Americans > 60 (> 60); eGFR For Non-African Americans 58 (> 60)
[2021-06-26] MEDS: *HR* Heparin 5,000 UNIT/ML VIAL SQ SCH (06:15)
[2021-06-26] MEDS ORDERED: 0.9 % Sodium Chloride 250 ML IVC SCH ×2 (07:30→12:22)
[2021-06-26] MEDS ORDERED: Acetaminophen IV 1,000 MG/100 ML BAG IVPB ONE ×2 (08:56→12:22)
[2021-06-26] MEDS ORDERED: Famotidine 20 MG/2 ML VIAL IVP ONE (09:00)
[2021-06-26] MEDS ORDERED: Nitroglycerin 0.4 MG TAB.SUBL SL PRN ×2 (09:01→12:22)
[2021-06-26] MEDS ORDERED: Albuterol 2.5 MG/3 ML NEBULIZER IH PRN (09:01)
[2021-06-26] MEDS ORDERED: Naloxone 0.4 MG/ML INJ IVP PRN ×3 (09:01→12:22)
[2021-06-26] MEDS ORDERED: *HR* FentaNYL (PF) 100 MCG/2 ML VIAL IVP PRN ×3 (09:01→12:22)
[2021-06-26] MEDS ORDERED: *HR* Labetalol 20 MG/4 ML SYRINGE IVP PRN ×2 (09:01→12:22)
[2021-06-26] MEDS ORDERED: Ondansetron 4 MG/2 ML VIAL IVP PRN ×3 (09:01→12:22)
[2021-06-26] MEDS ORDERED: *HR* FentaNYL (PF) 100 MCG/2 ML VIAL ONE (09:07)
[2021-06-26] MEDS ORDERED: Ondansetron 4 MG/2 ML VIAL ONE (09:07)
[2021-06-26] MEDS ORDERED: *HR* Propofol 200 MG/20 ML VIAL IVP ONE (09:08)
[2021-06-26] MEDS: *HR* HYDROmorphone (PF) 1 MG/ML SYRINGE IVP PRN ×3 (09:10→11:40)
[2021-06-26] MEDS ORDERED: Lidocaine -MPF 2% 5 ML VIAL ONE (09:21)
[2021-06-26] MEDS ORDERED: Spironolactone 12.5 MG TABLET PO SCH (09:30)
[2021-06-26] MEDS ORDERED: *HR* Digoxin 0.125 MG TABLET PO SCH (09:30)
[2021-06-26] MEDS ORDERED: Sugammadex Sodium 200 MG/2 ML VIAL IV ONE (10:58)
[2021-06-26] MEDS ORDERED: *HR* Metoprolol 5 MG/5 ML VIAL IVP PRN (12:22)
[2021-06-26] MEDS ORDERED: *HR* HYDROmorphone (PF) 1 MG/ML SYRINGE IVP PRN (12:22)
[2021-06-26] MEDS ORDERED: Simethicone 80 MG TAB.CHEW PO SCH (15:00)
[2021-06-26] MEDS: Simethicone 80 MG TAB.CHEW PO SCH ×2 (16:09→20:20)
[2021-06-26] MEDS: CeFAZolin 2 GM/120 ML BAG IVPB SCH (16:11)
[2021-06-26] MEDS: Apixaban 2.5 MG TABLET PO SCH (20:19)
[2021-06-27] MEDS: CeFAZolin 2 GM/120 ML BAG IVPB SCH (01:23)
[2021-06-27] MEDS: Acetaminophen 325 MG TABLET PO PRN ×2 (04:59→13:00)
[2021-06-27 07:45] LABS: Hematocrit 28.1 % (35.3-44.9)
[2021-06-27 08:04] LABS: Hemoglobin 9.1 g/dL (11.5-15.4)
[2021-06-27] MEDS: Venlafaxine XR (24 HR) 75 MG CAP.ER.24H PO SCH (08:24)
[2021-06-27] MEDS: Simethicone 80 MG TAB.CHEW PO SCH ×3 (08:24→21:08)
[2021-06-27] MEDS: *HR* Digoxin 0.125 MG TABLET PO SCH (08:25)
[2021-06-27] MEDS: Furosemide 40 MG TABLET PO SCH (08:25)
[2021-06-27] MEDS: Apixaban 2.5 MG TABLET PO SCH ×2 (08:25→21:08)
[2021-06-27 08:34] LABS: Calcium 8.7 mg/dL (8.6-10.3); Potassium 3.9 mEq/L (3.5-5.1)
[2021-06-27] MEDS ORDERED: Furosemide 40 MG TABLET PO SCH (09:00)
[2021-06-27] MEDS ORDERED: Venlafaxine XR (24 HR) 75 MG CAP.ER.24H PO SCH (09:00)
[2021-06-28] MEDS ORDERED: *HR* OxyCODONE Immed Rel 5 MG TABLET PO ONE (00:09)
[2021-06-28 05:04] LABS: Basophils % 0.4 %; Eosinophils # 0.2 K/mcL (0.0-0.6); Eosinophils % 1.9 %; Hematocrit 27.3 % (35.3-44.9); Hemoglobin 9.1 g/dL (11.5-15.4); Immature Granulocytes % 0.2 % (0-4); Lymphocytes % 11.9 %; Mean Corpuscular HGB Conc 33.3 g/dL (31.6-35.5); Mean Corpuscular Hemoglobin 32.7 pg (28.0-33.3); Mean Corpuscular Volume 98.2 fL (83.0-100.0); Mean Platelet Volume 10.4 fL (9.4-12.4); Monocytes # 1.1 K/mcL (0.0-1.3); Monocytes % 12.3 %; Neutrophils # 6.3 K/mcL (1.6-8.9); Platelet Count 139 K/mcL (140-400); Red Blood Count 2.78 M/mcL (3.82-4.97); Red Cell Distribution Width 13.4 % (11.5-14.5); Segmented Neutrophils % 73.3 %; White Blood Count 8.6 K/mcL (4.3-11.1)
[2021-06-28 05:23] LABS: BUN/Creatinine Ratio 29 (6-26); Blood Urea Nitrogen 28 mg/dL (8-23); Calcium 8.7 mg/dL (8.6-10.3); Carbon Dioxide 27 mEq/L (23-29); Chloride 104 mEq/L (98-107); Glucose 102 mg/dL (70-105); Osmolality,Calculated 292 (280-300); Potassium 3.8 mEq/L (3.5-5.1); Sodium 138 mEq/L (136-145); eGFR For African Americans > 60 (> 60); eGFR For Non-African Americans 53 (> 60)
[2021-06-28] MEDS ORDERED: Spironolactone 12.5 MG TABLET PO SCH (09:30)
[2021-06-28] MEDS: Simethicone 80 MG TAB.CHEW PO SCH ×3 (09:42→20:15)
[2021-06-28] MEDS: Furosemide 40 MG TABLET PO SCH (09:42)
[2021-06-28] MEDS: Apixaban 2.5 MG TABLET PO SCH ×2 (09:42→20:15)
[2021-06-28] MEDS: Venlafaxine XR (24 HR) 75 MG CAP.ER.24H PO SCH (09:42)
[2021-06-28] MEDS: *HR* Digoxin 0.125 MG TABLET PO SCH (09:42)
[2021-06-28] MEDS: Sennosides/Docusate Sodium TABLET PO SCH (20:15)
[2021-06-29 05:08] LABS: Basophils % 0.4 %; Eosinophils # 0.2 K/mcL (0.0-0.6); Eosinophils % 2.5 %; Hematocrit 30.7 % (35.3-44.9); Hemoglobin 9.6 g/dL (11.5-15.4); Immature Granulocytes % 0.4 % (0-4); Lymphocytes # 1.7 K/mcL (0.6-4.6); Lymphocytes % 19.7 %; Mean Corpuscular HGB Conc 31.3 g/dL (31.6-35.5); Mean Corpuscular Hemoglobin 31.8 pg (28.0-33.3); Mean Corpuscular Volume 101.7 fL (83.0-100.0); Mean Platelet Volume 10.3 fL (9.4-12.4); Monocytes # 1.1 K/mcL (0.0-1.3); Neutrophils # 5.5 K/mcL (1.6-8.9); Platelet Count 167 K/mcL (140-400); Red Blood Count 3.02 M/mcL (3.82-4.97); Red Cell Distribution Width 13.4 % (11.5-14.5); White Blood Count 8.5 K/mcL (4.3-11.1)
[2021-06-29 05:23] LABS: BUN/Creatinine Ratio 35 (6-26); Blood Urea Nitrogen 34 mg/dL (8-23); Calcium 9.2 mg/dL (8.6-10.3); Carbon Dioxide 27 mEq/L (23-29); Chloride 102 mEq/L (98-107); Glucose 99 mg/dL (70-105); Osmolality,Calculated 290 (280-300); Potassium 3.7 mEq/L (3.5-5.1); Sodium 136 mEq/L (136-145); eGFR For African Americans > 60 (> 60); eGFR For Non-African Americans 54 (> 60)
[2021-06-29] MEDS: *HR* Digoxin 0.125 MG TABLET PO SCH (08:30)
[2021-06-29] MEDS: Sennosides/Docusate Sodium TABLET PO SCH (08:31)
[2021-06-29] MEDS: Furosemide 40 MG TABLET PO SCH (08:31)
[2021-06-29] MEDS: Simethicone 80 MG TAB.CHEW PO SCH (08:31)
[2021-06-29] MEDS: Venlafaxine XR (24 HR) 75 MG CAP.ER.24H PO SCH (08:31)
[2021-06-29] MEDS: Apixaban 2.5 MG TABLET PO SCH (08:32)
[2021-06-29] MEDS ORDERED: Bisacodyl 10 MG RECTAL SUPPOSITORY RC PRN (10:24)
[2021-06-29] MEDS ORDERED: polyethylene glycoL 3350 17 GM POWD.PACK PO SCH (10:30)
[2021-06-29 15:59] VITALS: BP 125/69; PULSE 105; TEMP 98.9; O2SAT 94
== END 2021-06-29 18:00 | disposition other institution (70) | DRG 481 ==
LOC: 4WAOSI 15:10 → EMEROOARM 15:10 → SUATTDRO 18:15 → 4WAOSI 18:27
PROVIDERS: ADMIT Internal Medicine; ATTEND Internal Medicine